=== PATIENT | female | born 1950 ===

== ENCOUNTER 2017-01-20 14:33 | Inpatient (IN) | payer OTHER ==
[2017-01-20] MEDS ORDERED: Sodium Chloride 0.9% 1,000 ML IV STA (14:57)
[2017-01-20] MEDS ORDERED: Iohexol 240 (50 ml) PO ONE (14:57)
--- NOTE | 2017-01-20 15:02 | ED PDOC ---
HPI: Abdomen Time Seen by Provider: 01/20/17 14:50 Chief Complaint (Nursing): Abdominal Pain Chief Complaint (Provider): Abd pain History Per: Patient History/Exam Limitations: no limitations Onset/Duration Of Symptoms: Days (yesterday) Additional Complaint(s): Pt. with abd pain upper abd since yesterday. Nausea, vomit nonbloody as well No back pain, chest pain, dyspnea, weakness, headaches. No dysuira. No fever. No cough. No new food or drinks. No travel. Past Medical History Reviewed: Nursing Documentation, Vital Signs Vital Signs: Last Vital Signs Temp 98.0 F 01/20/17 14:36 Pulse 88 01/20/17 14:36 Resp 20 01/20/17 14:36 BP 168/90 H 01/20/17 14:36 Pulse Ox 98 01/20/17 19:10 - Medical History Other PMH: cervical cancer hx - Surgical History Surgical History: Denies: Back Surgery, CABG - Family History Family History: States: Unknown Family Hx - Living Arrangements Living Arrangements: With Family - Social History Current smoker - smoking cessation education provided: No Alcohol: None Drugs: Denies - Allergies Allergies/Adverse Reactions: Allergies Allergy/AdvReac Type Severity Reaction Status Date / Time No Known Allergies Allergy Verified 01/20/17 14:38 Review of Systems ROS Statement: Except As Marked, All Systems Reviewed And Found Negative Gastrointestinal: Positive for: Nausea, Vomiting, Abdominal Pain Physical Exam - Reviewed Nursing Documentation Reviewed: Yes Vital Signs Reviewed: Yes - Physical Exam Appears: Positive for: Non-toxic, No Acute Distress Head Exam: Positive for: ATRAUMATIC, NORMAL INSPECTION, NORMOCEPHALIC Skin: Positive for: Normal Color, Warm, DRY Eye Exam: Positive for: EOMI, Normal appearance, PERRL ENT: Positive for: Normal ENT Inspection Neck: Positive for: Normal, Painless ROM Cardiovascular/Chest: Positive for: Regular Rate, Rhythm Respiratory: Positive for: CNT, Normal Breath Sounds Gastrointestinal/Abdominal: Positive for: Bowel Sounds, Soft, Tenderness ( diffuse with hernia/bulging mid abd; no echymosis or erythema) Back: Positive for: Normal Inspection. Negative for: L CVA Tenderness, R CVA Tenderness Extremity: Positive for: Normal ROM. Negative for: Tenderness, Pedal Edema Neurologic/Psych: Positive for: Alert, Oriented - Laboratory Results Result Diagrams: 01/20/17 15:30 01/20/17 14:59 Interpretation Of Abn Labs: 12.2 wbc, t bili and ast and alt mild elevation; 3 k - ECG ECG: Positive for: Interpreted By Me, Viewed By Me ECG Rhythm: Positive for: Normal QRS, Normal ST Segment, Sinus Rhythm O2 Sat by Pulse Oximetry: 98 Pulse Ox Interpretation: Normal - Radiology X-Ray: Interpreted by Me, Viewed By Me X-Ray Interpretation: No Acute Disease - CT Scan/US ct and US Other Rad Studies (CT/US): Read By Radiologist Other Rad Interpretation: small bowel obstruction; hernia - Progress ED Course And Treament: 1926: Stable. AAOx3. Spoke with Dr. Price. Will admit. Spoke with Dr. Morales. Will consult. Disposition - Clinical Impression Clinical Impression: Small bowel obstruction, Hypokalemia, Hernia - Patient ED Disposition Is Patient to be Admitted: Yes Counseled Patient/Family Regarding: Studies Performed, Diagnosis - Disposition Disposition Time: 19:27 Condition: FAIR - Pt Status Changed To: Hospital Disposition Of: Inpatient - Admit Certification Admit to Inpatient:: After my assessment, the patient will require hospitalization for at least two midnights. This is because of the severity of symptoms shown, intensity of services needed, and/or the medical risk in this patient being treated as an outpatient. - POA Present On Arrival: None
[2017-01-20] MEDS ORDERED: Iohexol 240 (50 ml) ONE (15:26)
[2017-01-20 15:43] LABS: BASO % 0.2 % (0.0-2.0); EOS % 0.1 % (0.0-4.0); HEMATOCRIT 42.8 % (34.0-47.0); LYMPH % 8.2 % (20.0-40.0); MEAN CELL VOLUME 88.2 fl (81.0-99.0); MEAN CORPUSCULAR HEMOGLOBIN 29.9 pg (27.0-31.0); MEAN CORPUSCULAR HGB CONC 33.9 g/dL (33.0-37.0); MEAN PLATELET VOLUME 9.2 fl (7.2-11.7); MONO # 0.5 K/uL (0.0-0.8); MONO % 3.8 % (0.0-10.0); NEUT # 10.7 K/uL (1.8-7.0); NEUT % 87.7 % (50.0-75.0); PLATELET COUNT 176 K/uL (130-400); RED CELL DISTRIBUTION WIDTH 13.1 % (11.5-14.5); WHITE BLOOD COUNT 12.2 K/uL (4.8-10.8)
[2017-01-20 15:57] LABS: ALB/GLOB RATIO 1.2 (1.0-2.1); ALKALINE PHOSPHATASE 126 U/L (38-126); ALT/SGPT 58 U/L (9-52); AST/SGOT 42 U/L (14-36); BILIRUBIN,TOTAL 2.2 mg/dl (0.2-1.3); BLOOD UREA NITROGEN 17 mg/dl (7-17); CALCIUM 10.1 mg/dL (8.4-10.2); CARBON DIOXIDE 26 mmol/L (22-30); CHLORIDE 101 mmol/L (98-107); GFR AFRICAN-AMERICAN > 60; GLUCOSE,RANDOM 140 mg/dL (65-105); LIPASE 36 U/L (23-300); SODIUM 141 mmol/l (132-148); TOTAL PROTEIN 9.1 G/DL (6.3-8.2)
--- NOTE | 2017-01-20 16:16 | RAD ---
HISTORY: dyspnea COMPARISON: Chest x-ray performed 12/16/11 TECHNIQUE: Chest, one view. FINDINGS: Examination limited by habitus. LUNGS: No focal consolidation. Please note that chest x-ray has limited sensitivity for the detection of pulmonary masses. PLEURA: No significant pleural effusion identified. No definite pneumothorax . CARDIOVASCULAR: Heart size appears within normal limits. Atherosclerotic calcifications of the aortic knob. OSSEOUS STRUCTURES: Osseous demineralization. Degenerative changes. VISUALIZED UPPER ABDOMEN: Right upper quadrant surgical clips. OTHER FINDINGS: None. IMPRESSION: No focal consolidation, significant pleural effusion, or definite pneumothorax identified.
[2017-01-20 16:23] LABS: VENOUS BLOOD GAS BASE EXCESS 5.8 mmol/L (0.0-2.0); VENOUS BLOOD GAS PCO2 33 mmHg (40-60); VENOUS BLOOD PH 7.54 (7.32-7.43)
[2017-01-20 17:11] LABS: NEUTROPHIL 86 % (42-75); TOTAL CELLS COUNTED 100
[2017-01-20] MEDS ORDERED: Sodium Chloride 0.9% 50 ML IV ONE (17:11)
[2017-01-20] MEDS ORDERED: Iohexol 300 100 ML IJ ONE (17:11)
--- NOTE | 2017-01-20 18:13 | CT ---
PROCEDURE: CT Abdomen and Pelvis with oral and IV contrast. HISTORY: abd pain COMPARISON: None available TECHNIQUE: Contiguous axial images of the abdomen and pelvis. Oral and IV contrast was administered. Coronal and Sagittal reformats generated and reviewed. Contrast dose: 90 mL Omnipaque 300 Radiation dose: Total exam DLP = 618.46 mGy-cm. This CT exam was performed using one or more of the following dose reduction techniques: Automated exposure control, adjustment of the mA and/or kV according to patient size, and/or use of iterative reconstruction technique. FINDINGS: LOWER THORAX: No visible consolidation, pleural effusion, or pneumothorax. Gastroesophageal reflux. LIVER: Hypoattenuation of the liver compatible with hepatic steatosis. GALLBLADDER AND BILE DUCTS: Cholecystectomy. PANCREAS: Unremarkable. SPLEEN: Unremarkable. ADRENALS: Unremarkable. KIDNEYS AND URETERS: The kidneys enhance symmetrically. No hydronephrosis or obstructing renal calculus. 16 mm left renal low-density lesion, possibly cyst. BLADDER: Distended urinary bladder. REPRODUCTIVE: Uterus is absent, presumably due to hysterectomy. APPENDIX: The appendix is not identified. No secondary signs of acute appendicitis. BOWEL: The stomach is nondistended. At least 4 large anterior bowel containing abdominal wall hernias. Superior most hernia measures approximately 2.5 cm in transverse dimension and contains dilated fluid-filled small bowel loops. More inferiorly, there is a 2.1 cm bowel containing hernia, right anterior abdominal wall hernia measuring approximately 3.9 cm, and left anterior abdominal wall hernia measuring approximately 2.7 cm. Suspect small bowel obstruction due to prominent fluid-filled dilated loops of small bowel within the mid abdomen with more distally decompressed small bowel loops evident. Suspect transition point (series 3, image 89) near the mouth of the superior most hernia. PERITONEUM: No significant free fluid. No definite free air. LYMPH NODES: No bulky lymphadenopathy identified. VASCULATURE: No aortic aneurysm. BONES: Osseous demineralization. Degenerative changes. OTHER FINDINGS: None. IMPRESSION: At least 4 ventral wall bowel containing hernias. In the evidence which suggests small bowel obstruction with transition point suspected near the mouth of the superior most hernia. Hepatic steatosis. Cholecystectomy. 16 mm probable left renal cyst. Gastroesophageal reflux.
--- NOTE | 2017-01-20 18:25 | US ---
HISTORY: ruq and epigastric pain COMPARISON: CT abdomen and pelvis with contrast performed the same day. TECHNIQUE: Sonographic evaluation of the right upper quadrant of the abdomen. FINDINGS: LIVER: Measures 15.4 cm in length. Echogenic liver may be seen in setting of hepatic parenchymal disease or fatty infiltration. No focal hepatic mass identified. The main portal vein appears patent with normal directional flow. No intrahepatic bile duct dilatation. GALLBLADDER: Cholecystectomy. COMMON BILE DUCT: Measures 8 mm. No stones. No dilatation. PANCREAS: Not well-visualized RIGHT KIDNEY: Measures 11.0 x 3.9 x 5.9 cm. No obstructing calculus or hydronephrosis identified. AORTA: Limited visualization appears grossly unremarkable. IVC: Limited visualization appears grossly unremarkable. OTHER FINDINGS: None . IMPRESSION: Echogenic liver may be seen in setting of hepatic parenchymal disease or fatty infiltration. Cholecystectomy.
[2017-01-20] MEDS ORDERED: Potassium Chloride 20 mEq ER Tab PO STA (19:28)
[2017-01-20] MEDS ORDERED: Potassium Chl 20 mEq in NS 1,000 ML IV ONE (19:30)
--- NOTE | 2017-01-20 20:19 | CP.PCM.HP ---
History of Present Illness - History of Present Illness History of Present Illness: Chief Complaint: stomach pain HPI: 66 year old female with PMH hx cervical ca s/p chemo/radiation, hx hernias , s/p hysterectomy, appendectomy, cholecystectomy, presents with a two day history of sharp, stabbing, severe generalized abdominal pain, cramping, waxing and waning in nature, associated with bilious emesis and nausea. Patient is accompanied by daughter who is providing most of the history. Pain controlled, NGT +600cc bilious in one hour, to LIS. Surgery consulted in ER, Dr. Morales, patient seen and evaluated by resident. Plan for OR tomorrow. NPO after midnight. Patient to remain on maintenance fluids, pain control. Vitals are stable, no longer in acute distress. ROS: Per HPI, all other systems reviewed negative by me PMSH: hx cervical ca s/p chemo/radiation, s/p hysterectomy, appendectomy, cholecystectomy FH: denies SH: denies tobacco, etoh, ivdu ALLERGIES: NKDA MEDICATIONS: reviewed and as below Surrogate Decision Maker: in chart Temp Pulse Resp BP Pulse Ox 98.5 F 65 18 148/66 97 01/20/17 21:23 01/20/17 21:23 01/20/17 21:23 01/20/17 21:23 01/20/17 21:22 GENERAL APPEARANCE: Well developed, well nourished, alert and cooperative HEENT: normocephalic, atraumatic PERRL, EOMI. Vision is grossly intact. NECK: Neck supple, non-tender without lymphadenopathy, masses or thyromegaly. CARDIAC: Normal S1 and S2. No S3, S4 or murmurs. Rhythm is regular. LUNGS: Clear to auscultation and percussion without rales, rhonchi, wheezing or diminished breath sounds. ABDOMEN: No bowel sounds appreciated. Soft, nondistended, +tender. + guarding without rebound. No masses. BACK: Examination of the spine reveals no spinal deformity, symmetry of spinal muscles, EXTREMITIES: No significant deformity or joint abnormality. No edema. NEUROLOGICAL: Strength and sensation symmetric and intact throughout. Reflexes 2 + throughout. SKIN: Skin normal color, texture and turgor with no lesions or eruptions. PSYCHIATRIC: The patient was oriented to person, place, and time. Normal affect. LABS: 01/20/17 15:30 05/23/17 14:59 01/20/17 01/20/17 01/20/17 15:30 14:59 14:57 WBC 12.2 H RBC 4.85 Hgb 14.5 Hct 42.8 MCV 88.2 MCH 29.9 MCHC 33.9 RDW 13.1 Plt Count 176 MPV 9.2 Neut % (Auto) 87.7 H Lymph % (Auto) 8.2 L [place] % (Auto) 3.8 Eos % (Auto) 0.1 Baso % (Auto) 0.2 Neut # 10.7 H Lymph # 1.0 [place] # 0.5 Eos # 0.0 Baso # 0.0 Neutrophils % (Manual) 86 H Band Neutrophils % 1 Lymphocytes % (Manual) 12 L Monocytes % (Manual) 1 Platelet Estimate Normal pO2 40 VBG pH 7.54 H VBG pCO2 33 L VBG HCO3 29.0 VBG Total CO2 29.2 H VBG O2 Sat (Calc) 84.4 H VBG Base Excess 5.8 H VBG Potassium 3.0 L Sodium 141 138.0 Chloride 101 106.0 Glucose 114 H Lactate 1.5 FiO2 21.0 Potassium 3.0 L Carbon Dioxide 26 Anion Gap 17 BUN 17 Creatinine 0.6 L Est GFR ( Amer) > 60 Est GFR (Non-Af Amer) > 60 Random Glucose 140 H Calcium 10.1 Total Bilirubin 2.2 H AST 42 H ALT 58 H Alkaline Phosphatase 126 Total Protein 9.1 H Albumin 4.9 Globulin 4.2 H Albumin/Globulin Ratio 1.2 Lipase 36 Venous Blood Potassium 3.0 L IMAGING STUDIES Abd US Echogenic liver may be seen in setting of hepatic parenchymal disease or fatty infiltration. Cholecystectomy. CT Abd: at least 4 ventral wall bowel containing hernias. In the evidence which suggests small bowel obstruction with transition point suspected near the mouth of the superior most hernia. Hepatic steatosis. Cholecystectomy. 16 mm probable L renal cyst. GERD. CXR no active disease EKG Normal sinus. T wave flattening nonspecific changes. Rate 71. ASSESSMENT AND PLAN 66 year old female with PMH hx cervical ca s/p chemo/radiation, hx hernias, s/p hysterectomy, appendectomy, cholecystectomy, presents with a two day history of sharp, stabbing, severe generalized abdominal pain, cramping, waxing and waning in nature, associated with bilious emesis and nausea. Patient is accompanied by daughter who is providing most of the history. CT Abd: at least 4 ventral wall bowel containing hernias. In the evidence which suggests small bowel obstruction with transition point suspected near the mouth of the superior most hernia. Hepatic steatosis. Cholecystectomy. 16 mm probable L renal cyst. GERD. Pain controlled, NGT +600cc bilious in one hour, to LIS. Surgery consulted in ER for SBO, Dr. Morales, patient seen and evaluated by resident. Plan for OR tomorrow. NPO after midnight. Patient to remain on maintenance fluids, pain control. Vitals are stable, no longer in acute distress. Surgical risk stratification: METS >4. Patient low risk for low risk procedure. Small Bowel Obstruction CT Abd: at least 4 ventral wall bowel containing hernias. In the evidence which suggests small bowel obstruction with transition point suspected near the mouth of the superior most hernia. Hepatic steatosis. Cholecystectomy. 16 mm probable L renal cyst. GERD. +NGT placed with 600cc out in first hour, LIS; I/O Pain control with morphine and toradol NPO Zofran for nausea Maintenance fluids Surgery consult, plan for OR tomorrow Hypokalemia repleted in ER monitor electroytes DVT prophylaxis SCDs OR tomorrow Present on Admission - Present on Admission Any Indicators Present on Admission: No Past Patient History - Infectious Disease Hx of Infectious Diseases: None - Past Social History Alcohol: None Drugs: Denies - PULMONARY Other/Comment: lt. lung effusion - GENITOURINARY/GYNECOLOGICAL Hx Cervical Cancer: Yes - PSYCHIATRIC Hx Substance Use: No - SURGICAL HISTORY Hx Coronary Artery Bypass Graft: No Meds Allergies/Adverse Reactions: Allergies Allergy/AdvReac Type Severity Reaction Status Date / Time No Known Allergies Allergy Verified 01/20/17 14:38 Results - Vital Signs Recent Vital Signs: Last Vital Signs Temp 98.2 F 01/20/17 19:31 Pulse 72 01/20/17 20:07 Resp 18 01/20/17 20:07 BP 169/86 H 01/20/17 20:07 Pulse Ox 94 L 01/20/17 20:07 - Labs Result Diagrams: 01/20/17 15:30 01/20/17 14:59
[2017-01-20] MEDS ORDERED: Potassium CL 10mEq/100ml 100 ML IVPB SCH (21:00)
--- NOTE | 2017-01-20 22:10 | CP.PCM.CON ---
History of Present Illness - History of Present Illness History of Present Illness: GENERAL SURGERY CONSULT NOTE FOR DR. NORTH 66yo F with PMHx of cervical cancer s/p chemo and radiation, hysterectomy, ventral hernias presents to the ED with abdominal pain and vomiting. The pain began yesterday around 2PM. The pain was diffuse but more so where the superior ventral hernia is. She vomited more than 10 times, non bloody. Her last BM was yesterday AM and it was soft. She can't remember the last time she passed flatus but states it might be last week. The patient first noticed the hernias about a year ago when she had pain in the area. She saw a doctor at [facility] who per the patient stated that they didn't recommend surgery due to her age. Patient had tried to reduce the hernias in the past but was unsuccessful. In the ED, CT was done which showed SBO likely secondary to ventral hernia. An NG tube was placed with 650cc initial output. Of note, patient states that she had latent TB. She took an unknown medication for a couple days but had side effects so her doctor told her she didn't have to take it anymore. She had been seen at the lung center in [place]. Patient has a follow up appointment with a band edger in January. PMHx: cervical cancer s/p surgery, chemo and radiation 5 years ago; ventral hernias; latent TB Surgeries: cholecystectomy in [facility], hysterectomy, appendectomy in [facility] Allergies: none Social history: denies etoh, tobacco use, illicit drug use Review of Systems - Review of Systems All systems: reviewed and no additional remarkable complaints except (as per HPI ) Past Patient History - Infectious Disease Hx of Infectious Diseases: None - Past Social History Alcohol: None Drugs: Denies - CARDIAC Hx Cardiac Disorders: No - PULMONARY Other/Comment: lt. lung effusion - NEUROLOGICAL Hx Neurological Disorder: No - HEENT Hx HEENT Problems: No - RENAL Hx Chronic Kidney Disease: No - ENDOCRINE/METABOLIC Hx Endocrine Disorders: No - HEMATOLOGICAL/ONCOLOGICAL Hx Blood Disorders: Yes (Cervical cancer) - INTEGUMENTARY Hx Dermatological Problems: No - MUSCULOSKELETAL/RHEUMATOLOGICAL Hx Musculoskeletal Disorders: No - GENITOURINARY/GYNECOLOGICAL Hx Cervical Cancer: Yes - PSYCHIATRIC Hx Substance Use: No - SURGICAL HISTORY Hx Coronary Artery Bypass Graft: No Meds Allergies/Adverse Reactions: Allergies Allergy/AdvReac Type Severity Reaction Status Date / Time No Known Allergies Allergy Verified 01/20/17 14:38 - Medications Medications: Current Medications Potassium Chloride/Dextrose/Sod Cl (Potassium Chl 20 Meq In D5-1/2ns) 1,000 mls @ 125 mls/hr IV .Q8H MICHELLE Stop: 01/21/17 20:38 Ketorolac Tromethamine (Toradol) 30 mg IVP Q6 PRN PRN Reason: Pain, moderate (4-7) Morphine Sulfate (Morphine) 4 mg IVP Q6 PRN PRN Reason: Pain, severe (8-10) Ondansetron HCl (Zofran Inj) 4 mg IVP Q6 PRN PRN Reason: Nausea/Vomiting Physical Exam - Constitutional Appears: Non-toxic, No Acute Distress - Head Exam Head Exam: ATRAUMATIC, NORMAL INSPECTION - Eye Exam Eye Exam: EOMI - Respiratory Exam Respiratory Exam: NORMAL BREATHING PATTERN. absent: Respiratory Distress - Cardiovascular Exam Cardiovascular Exam: +S1, +S2 - GI/Abdominal Exam GI & Abdominal Exam: Firm (over superior hernia), Hernia (multiple non reducible ventral hernias, superior hernia is firmer, tender), Soft, Tenderness (tender over multiple hernia sites). absent: Distended, Guarding, Rebound, Rigid Additional comments: Lower midline abdominal scar - Neurological Exam Neurological exam: Alert, CN II-XII Intact, Oriented x3 - Psychiatric Exam Psychiatric exam: Normal Affect, Normal Mood - Skin Skin Exam: Dry, Normal Color, Warm Results - Vital Signs Recent Vital Signs: Last Vital Signs Temp 98.5 F 01/20/17 21:23 Pulse 65 01/20/17 21:23 Resp 18 01/20/17 21:23 BP 148/66 01/20/17 21:23 Pulse Ox 97 01/20/17 21:22 - Labs Result Diagrams: 01/20/17 15:30 01/20/17 14:59 Assessment & Plan - Assessment and Plan (Free Text) Assessment: 66yo F with PMHx of cervical cancer s/p chemo and radiation, hysterectomy, ventral hernias presents with abdominal pain and vomiting and is found to have SBO secondary to ventral hernia - Afebrile, VSS - WBC 12.2 - VBG lactate WNL - Hypokalemia 3.0 - replaced - CT: at least 4 ventral wall bowel containing hernias. Small bowel obstruction with transition point likely near mouth of superior most hernia. Superior hernia 2.5cm with dilated fluid filled loops; Inferiorly 2.1cm; Right abdominal wall hernia 3.9cm; Left abdominal wall hernia 2.7cm - NG tube in place on low continuous suction, 650cc output in initial hour in ED - NPO - IV fluids - Morphine and Zofran PRN - OR tomorrow AM for Exploratory laparotomy, repair of ventral hernia, possible bowel resection - Procedure explained to patient and family in detail, all questions were answered, written consent obtained - Discussed plan with Dr. Andrew Rodriguez PGY-2
[2017-01-20] MEDS: Potassium Ch 20mEq in D5-1/2NS 1,000 ML IV SCH ×2 (22:27→23:14)
[2017-01-21] MEDS: Potassium Ch 20mEq in D5-1/2NS 1,000 ML IV SCH ×3 (05:05→23:07)
[2017-01-21 07:44] LABS: HEMATOCRIT 38.6 % (34.0-47.0); MEAN CELL VOLUME 89.9 fl (81.0-99.0); MEAN CORPUSCULAR HEMOGLOBIN 30.1 pg (27.0-31.0); MEAN CORPUSCULAR HGB CONC 33.5 g/dL (33.0-37.0); RED CELL DISTRIBUTION WIDTH 13.2 % (11.5-14.5); WHITE BLOOD COUNT 7.7 K/uL (4.8-10.8)
[2017-01-21 08:03] LABS: BLOOD UREA NITROGEN 12 mg/dl (7-17); CARBON DIOXIDE 26 mmol/L (22-30); CHLORIDE 107 mmol/L (98-107); GFR AFRICAN-AMERICAN > 60; GLUCOSE,RANDOM 129 mg/dL (65-105); POTASSIUM 4.2 MMOL/L (3.6-5.0); SODIUM 141 mmol/l (132-148)
[2017-01-21] MEDS ORDERED: Enoxaparin 40 mg Syringe SC SCH (09:00)
[2017-01-21 09:17] LABS: PARTIAL THROMBOPLASTIN TIME 24.2 SECONDS (23.3-32.5)
[2017-01-21] MEDS ORDERED: Propofol 10 mg/ml Inj (20 ML) ONE (09:48)
[2017-01-21] MEDS ORDERED: Rocuronium 10 mg/ml (5 ml) ONE ×2 (09:48→11:06)
[2017-01-21] MEDS ORDERED: Midazolam 2 MG/2 ML VIAL ONE (09:48)
[2017-01-21] MEDS ORDERED: Succinylcholine 200 mg/10 ml Inj IV ONE (09:48)
[2017-01-21] MEDS ORDERED: Bupivacaine 0.5% Inj(30mL) ONE (10:00)
[2017-01-21] MEDS ORDERED: Lidocaine 1% Inj (20ml) ONE (10:00)
[2017-01-21] MEDS ORDERED: Lactated Ringer's 1,000 ML IV ONE ×2 (10:12→11:00)
[2017-01-21] MEDS ORDERED: Morphine 1 mg/ml preservative-free Inj(Duramorph) ONE (10:30)
--- NOTE | 2017-01-21 11:29 | RAD ---
PROCEDURE: CHEST RADIOGRAPH, 1 VIEW HISTORY: ngt placement COMPARISON: FINDINGS: LUNGS: In situ NGT, tip of which overlies left upper quadrant of the abdomen. No focal consolidation. PLEURA: No pneumothorax or pleural fluid seen. CARDIOVASCULAR: Normal. OSSEOUS STRUCTURES: No significant abnormalities. VISUALIZED UPPER ABDOMEN: Metallic clips right upper quadrant of the abdomen consistent with prior cholecystectomy. OTHER FINDINGS: None. IMPRESSION: In situ NGT, tip of which overlies left upper quadrant of the abdomen. No focal consolidation.
[2017-01-21] MEDS ORDERED: Neostigmine Methylsulfate 3mg/3ml Syringe IV ONE (11:30)
[2017-01-21] MEDS ORDERED: Neostigmine Methylsulfate 2 MG/2 ML ML IV ONE (11:30)
--- NOTE | 2017-01-21 12:10 | PCM.SURG1 ---
Surgeon's Initial Post Op Note - Surgeon's Notes Surgeon: Dr. Morales Cap Parts Cutter: Dr. Lundy, Dr. Hays, Dr. Harper Type of Anesthesia: General Endo Anesthesia Administered By: Airam Pre-Operative Diagnosis: Small Bowel Obstruction, Incarcerated Ventral hernia Operative Findings: see operative report Post-Operative Diagnosis: same Operation Performed: Exploratory Laparotomy. Repair of Incarcerated Ventral Hernia, with Mesh Specimen/Specimens Removed: none Estimated Blood Loss: EBL {In ML}: 10 Blood Products Given: N/A Drains Used: No Drains Post-Op Condition: Good Date of Surgery/Procedure: 01/21/17 Time of Surgery/Procedure: 12:10
[2017-01-21] MEDS: HYDROmorphone 0.5 mg/0.5 ml ISec IVP PRN ×5 (12:40→23:06)
--- NOTE | 2017-01-21 19:57 | CP.PCM.PN ---
Subjective - Date & Time of Evaluation Date of Evaluation: 01/21/17 Time of Evaluation: 17:10 - Subjective Subjective: Pt seen and examined. S/P repair of incarcerated hernia. Pain managed with Dilaudid 0.5mg IV q 4hrs prn. Objective - Vital Signs/Intake and Output Vital Signs (last 24 hours): Temp Pulse Resp BP Pulse Ox 98.2 F 87 20 134/63 96 01/21/17 18:44 01/21/17 18:44 01/21/17 18:44 01/21/17 18:44 01/21/17 18:44 Intake and Output: 01/21/17 01/22/17 18:59 06:59 Intake Total 1600 Output Total 575 Balance 1025 - Medications Medications: Current Medications Hydralazine HCl (Apresoline) 10 mg IV Q15M PRN PRN Reason: Systolic Blood Pressure Last Admin: 01/21/17 13:00 Dose: 10 mg Hydromorphone HCl (Dilaudid) 0.5 mg IVP Q3H PRN PRN Reason: Pain, moderate (4-7) Last Admin: 01/21/17 19:39 Dose: 0.5 mg Potassium Chloride/Dextrose/Sod Cl (Potassium Chl 20 Meq In D5-1/2ns) 1,000 mls @ 125 mls/hr IV .Q8H MICHELLE Last Admin: 01/21/17 06:13 Dose: 125 mls/hr Ondansetron HCl (Zofran Inj) 4 mg IVP Q4H PRN PRN Reason: Nausea/Vomiting - Labs Labs: 01/21/17 06:35 01/21/17 06:35 PT 10.4 SECONDS (9.6-11.2) 01/21/17 06:35 INR 1.00 (0.92-1.08) 01/21/17 06:35 APTT 24.2 SECONDS (23.3-32.5) 01/21/17 06:35 - Constitutional Appears: No Acute Distress - Head Exam Head Exam: ATRAUMATIC - Eye Exam Eye Exam: absent: Scleral icterus - ENT Exam ENT Exam: Mucous Membranes Moist - Neck Exam Neck Exam: absent: Meningismus - Respiratory Exam Respiratory Exam: absent: Rhonchi, Wheezes, Respiratory Distress - Cardiovascular Exam Cardiovascular Exam: REGULAR RHYTHM, +S1, +S2 - GI/Abdominal Exam GI & Abdominal Exam: Soft, Tenderness (tenderness on site of surgery) - Rectal Exam Rectal Exam: Deferred - Neurological Exam Neurological Exam: Alert, Oriented x3 - Psychiatric Exam Psychiatric exam: Normal Affect - Skin Skin Exam: Dry, Intact Assessment and Plan (1) Status post repair of ventral hernia Status: Acute (2) Hypokalemia Status: Acute - Assessment and Plan (Free Text) Assessment: 66 yo female with history of cervical cancer, post chemo/radiation, hernia, hysterectomy, appendectomy and cholecystectomy admitted because of intestinal obstruction (presented with abdominal pain, nausea and vomiting with [address] ventral [address]nia on CT scan) 1. SBO, S/P Ventral Hernia Repair incarcerated ventral hernia repaired earlier today continue IV hydration pain management with Dilaudid 0.5mg IV q 4hrs prn 2. Hypokalemia resolved 3. DVT prophylaxis venodyne boots while in bed
[2017-01-21 20:30] VITALS: BMI 29.6
[2017-01-22] MEDS: HYDROmorphone 0.5 mg/0.5 ml ISec IVP PRN ×4 (07:47→21:45)
--- NOTE | 2017-01-22 10:46 | CP.PCM.PN ---
Subjective - Date & Time of Evaluation Date of Evaluation: 01/22/17 Time of Evaluation: 10:44 - Subjective Subjective: General Surgery Progress Note for Dr. Morales / Dr. Lundy This 66F was seen and examined this AM at bedside. She reports no acute events overnight. Patient is complaining a continued abdominal pain. She is tolerating clears. She denies flatus, or bowel movements. She deneies nausea or vomiting. Her dressings are are intact with strikethrough serosanguinous drainage. Objective - Vital Signs/Intake and Output Vital Signs (last 24 hours): Temp Pulse Resp BP Pulse Ox 99.7 F H 102 H 20 144/63 96 01/22/17 07:45 01/22/17 07:45 01/22/17 07:45 01/22/17 07:45 01/22/17 07:45 - Medications Medications: Current Medications Hydralazine HCl (Apresoline) 10 mg IV Q15M PRN PRN Reason: Systolic Blood Pressure Last Admin: 01/21/17 13:00 Dose: 10 mg Hydromorphone HCl (Dilaudid) 0.5 mg IVP Q3H PRN PRN Reason: Pain, moderate (4-7) Last Admin: 01/22/17 07:47 Dose: 0.5 mg Potassium Chloride/Dextrose/Sod Cl (Potassium Chl 20 Meq In D5-1/2ns) 1,000 mls @ 125 mls/hr IV .Q8H MICHELLE Last Admin: 01/21/17 23:07 Dose: 125 mls/hr Ondansetron HCl (Zofran Inj) 4 mg IVP Q4H PRN PRN Reason: Nausea/Vomiting - Labs Labs: 01/21/17 06:35 01/21/17 06:35 PT 10.4 SECONDS (9.6-11.2) 01/21/17 06:35 INR 1.00 (0.92-1.08) 01/21/17 06:35 APTT 24.2 SECONDS (23.3-32.5) 01/21/17 06:35 - Constitutional Appears: Non-toxic, No Acute Distress - Head Exam Head Exam: ATRAUMATIC, NORMOCEPHALIC - Eye Exam Eye Exam: EOMI, Normal appearance - ENT Exam ENT Exam: Mucous Membranes Moist - Respiratory Exam Respiratory Exam: NORMAL BREATHING PATTERN - Cardiovascular Exam Cardiovascular Exam: REGULAR RHYTHM - GI/Abdominal Exam GI & Abdominal Exam: Soft, Tenderness Additional comments: Dressing intact with serosanguinous drainage - Extremities Exam Extremities Exam: Normal Inspection - Neurological Exam Neurological Exam: Alert, Awake - Psychiatric Exam Psychiatric exam: Normal Affect, Normal Mood - Skin Skin Exam: Dry, Intact Assessment and Plan - Assessment and Plan (Free Text) Assessment: This is a 66F who is POD#1 s/p exlap with reduction of obstructing incarcerated ventral hernia with mesh repair Continue clear liquid diet Continue pain control IVF OOB Continue medical managment per priamry team Heparin Subq for DVT prophalaxis. D/W Dr Nikkie Harper PGY-4
[2017-01-22 11:11] LABS: BASO % 0.2 % (0.0-2.0); EOS % 0.2 % (0.0-4.0); HEMATOCRIT 37.3 % (34.0-47.0); LYMPH # 1.6 K/uL (1.0-4.3); LYMPH % 17.5 % (20.0-40.0); MEAN CELL VOLUME 89.7 fl (81.0-99.0); MEAN CORPUSCULAR HEMOGLOBIN 30.3 pg (27.0-31.0); MEAN CORPUSCULAR HGB CONC 33.7 g/dL (33.0-37.0); MEAN PLATELET VOLUME 9.2 fl (7.2-11.7); MONO # 0.9 K/uL (0.0-0.8); MONO % 9.5 % (0.0-10.0); NEUT # 6.6 K/uL (1.8-7.0); NEUT % 72.6 % (50.0-75.0); RED CELL DISTRIBUTION WIDTH 13.4 % (11.5-14.5); WHITE BLOOD COUNT 9.1 K/uL (4.8-10.8)
[2017-01-22 11:20] LABS: ALB/GLOB RATIO 1.1 (1.0-2.1); ALKALINE PHOSPHATASE 78 U/L (38-126); ALT/SGPT 45 U/L (9-52); AST/SGOT 33 U/L (14-36); BILIRUBIN,TOTAL 2.1 mg/dl (0.2-1.3); BLOOD UREA NITROGEN 9 mg/dl (7-17); CALCIUM 8.9 mg/dL (8.4-10.2); CARBON DIOXIDE 26 mmol/L (22-30); CHLORIDE 100 mmol/L (98-107); GFR AFRICAN-AMERICAN > 60; GLUCOSE,RANDOM 121 mg/dL (65-105); POTASSIUM 4.3 MMOL/L (3.6-5.0); SODIUM 133 mmol/l (132-148); TOTAL PROTEIN 6.9 G/DL (6.3-8.2)
--- NOTE | 2017-01-22 17:33 | CP.PCM.PN ---
Subjective - Date & Time of Evaluation Date of Evaluation: 01/22/17 Time of Evaluation: 11:00 - Subjective Subjective: Pt seen and examined. Still complained of abdominal pain once effect of Dilaudid lapsed. Objective - Vital Signs/Intake and Output Vital Signs (last 24 hours): Temp Pulse Resp BP Pulse Ox 99.6 F 84 20 153/71 H 92 L 01/22/17 16:01 01/22/17 16:01 01/22/17 16:01 01/22/17 16:01 01/22/17 16:01 - Medications Medications: Current Medications Heparin Sodium (Porcine) (Heparin) 5,000 units SC Q12 MICHELLE PRN Reason: Protocol Hydralazine HCl (Apresoline) 10 mg IV Q15M PRN PRN Reason: Systolic Blood Pressure Last Admin: 01/21/17 13:00 Dose: 10 mg Hydromorphone HCl (Dilaudid) 0.5 mg IVP Q3H PRN PRN Reason: Pain, moderate (4-7) Last Admin: 01/22/17 10:55 Dose: 0.5 mg Ondansetron HCl (Zofran Inj) 4 mg IVP Q4H PRN PRN Reason: Nausea/Vomiting Last Admin: 01/22/17 16:28 Dose: 4 mg - Labs Labs: 01/22/17 10:50 01/22/17 10:50 PT 10.4 SECONDS (9.6-11.2) 01/21/17 06:35 INR 1.00 (0.92-1.08) 01/21/17 06:35 APTT 24.2 SECONDS (23.3-32.5) 01/21/17 06:35 - Constitutional Appears: No Acute Distress - Head Exam Head Exam: ATRAUMATIC - Eye Exam Eye Exam: absent: Scleral icterus - ENT Exam ENT Exam: Mucous Membranes Moist - Neck Exam Neck Exam: absent: Meningismus - Respiratory Exam Respiratory Exam: absent: Rhonchi, Wheezes, Respiratory Distress - Cardiovascular Exam Cardiovascular Exam: REGULAR RHYTHM, +S1, +S2 - GI/Abdominal Exam GI & Abdominal Exam: Soft, Tenderness (tenderness on site of surgery on palpation) - Rectal Exam Rectal Exam: Deferred - Neurological Exam Neurological Exam: Alert, Oriented x3 - Psychiatric Exam Psychiatric exam: Normal Affect - Skin Skin Exam: Dry, Intact Assessment and Plan (1) Status post repair of ventral hernia Status: Acute (2) Hypokalemia Status: Resolved - Assessment and Plan (Free Text) Assessment: 66 yo female with history of cervical cancer, post chemo/radiation, hernia, hysterectomy, appendectomy and cholecystectomy admitted because of intestinal obstruction (presented with abdominal pain, nausea and vomiting with 4 ventral [address] hernia on CT scan) 1. SBO, S/P Ventral Hernia Repair incarcerated ventral hernia repair POD # 1 continue pain management with Dilaudid 0.5mg IV q 4hrs prn 2. Hypokalemia resolved 3. DVT prophylaxis Heparin 5000 units SC q 12hrs
[2017-01-22] MEDS: Potassium Ch 20mEq in D5-1/2NS 1,000 ML IV SCH (17:50)
[2017-01-22] MEDS: Sodium Chloride 0.9% 1,000 ML IV SCH (20:56)
[2017-01-23] MEDS: Sodium Chloride 0.9% 1,000 ML IV SCH (04:00)
[2017-01-23] MEDS: HYDROmorphone 0.5 mg/0.5 ml ISec IVP PRN ×3 (05:07→15:30)
--- NOTE | 2017-01-23 08:24 | CP.PCM.PN ---
Subjective - Date & Time of Evaluation Date of Evaluation: 01/23/17 Time of Evaluation: 08:22 - Subjective Subjective: General Surgery - Dr. Morales Pt S&E. CESAR. PT was OOB to chair yesterday but limited in transfer d/t abdominal pain from hernia repair, which is expected. She is passing flatus and tolerating liquid diet. No N/V, F/C, SOB/CP. Objective - Vital Signs/Intake and Output Vital Signs (last 24 hours): Temp Pulse Resp BP Pulse Ox 100.2 F H 87 20 142/72 96 01/23/17 05:12 01/23/17 05:12 01/23/17 05:12 01/23/17 05:12 01/23/17 05:12 - Medications Medications: Current Medications Heparin Sodium (Porcine) (Heparin) 5,000 units SC Q12 MICHELLE PRN Reason: Protocol Last Admin: 01/22/17 21:49 Dose: 5,000 units Hydralazine HCl (Apresoline) 10 mg IV Q15M PRN PRN Reason: Systolic Blood Pressure Last Admin: 01/21/17 13:00 Dose: 10 mg Hydromorphone HCl (Dilaudid) 0.5 mg IVP Q3H PRN PRN Reason: Pain, severe (8-10) Sodium Chloride (Sodium Chloride 0.9%) 1,000 mls @ 100 mls/hr IV .Q10H [facility] Stop: 01/23/17 17:49 Last Admin: 01/23/17 04:00 Dose: Not Given Ondansetron HCl (Zofran Inj) 4 mg IVP Q4H PRN PRN Reason: Nausea/Vomiting Last Admin: 01/22/17 16:28 Dose: 4 mg Oxycodone/Acetaminophen (Percocet 5/325 Mg Tab) 2 tab PO Q4 PRN PRN Reason: Pain, moderate (4-7) Stop: 01/26/17 08:21 - Labs Labs: 01/22/17 10:50 01/22/17 10:50 PT 10.4 SECONDS (9.6-11.2) 01/21/17 06:35 INR 1.00 (0.92-1.08) 01/21/17 06:35 APTT 24.2 SECONDS (23.3-32.5) 01/21/17 06:35 - Constitutional Appears: No Acute Distress - Head Exam Head Exam: ATRAUMATIC, NORMAL INSPECTION, NORMOCEPHALIC - Eye Exam Eye Exam: Normal appearance - Respiratory Exam Respiratory Exam: NORMAL BREATHING PATTERN. absent: Respiratory Distress - Cardiovascular Exam Cardiovascular Exam: REGULAR RHYTHM - GI/Abdominal Exam GI & Abdominal Exam: Soft, Tenderness (appropriately tender around surgical site ). absent: Distended, Guarding Additional comments: dressing removed with serosanguinous drainage on sponge, no drainage from incision, staple line CDI - Neurological Exam Neurological Exam: Alert, Oriented x3 - Psychiatric Exam Psychiatric exam: Normal Affect, Normal Mood - Skin Skin Exam: Dry, Intact Assessment and Plan - Assessment and Plan (Free Text) Assessment: 66F s/p repair of incarcerated ventral hernias, POD #2 -Regular diet -Pain control -Abdominal binder -OOB and Ambulate -Clear for D/C once tolerating regular diet DW Dr. Andrew Hays PGY2
[2017-01-23] MEDS ORDERED: Enoxaparin 40 mg Syringe SC STA (09:58)
--- NOTE | 2017-01-23 12:11 | CP.PCM.PN ---
Subjective - Date & Time of Evaluation Date of Evaluation: 01/23/17 Time of Evaluation: 11:00 - Subjective Subjective: Low grade fever this morning 100.2F still with abdominal pain but better no BM + Flatus tolerated diet - ate oatmeal for breakfast no CP no SOB Objective - Vital Signs/Intake and Output Vital Signs (last 24 hours): Temp Pulse Resp BP Pulse Ox 98.1 F 83 20 131/73 92 L 01/23/17 08:23 01/23/17 08:23 01/23/17 08:23 01/23/17 08:23 01/23/17 08:23 - Medications Medications: Current Medications Docusate Sodium (Colace) 100 mg PO BID [facility] TO [facility] Last Admin: 01/23/17 10:02 Dose: 100 mg Hydralazine HCl (Apresoline) 10 mg IV Q15M PRN PRN Reason: Systolic Blood Pressure Last Admin: 01/21/17 13:00 Dose: 10 mg Hydromorphone HCl (Dilaudid) 0.5 mg IVP Q3H PRN PRN Reason: Pain, severe (8-10) Last Admin: 01/23/17 09:24 Dose: 0.5 mg Sodium Chloride (Sodium Chloride 0.9%) 1,000 mls @ 100 mls/hr IV .Q10H MICHELLE Stop: 01/23/17 17:49 Last Admin: 01/23/17 04:00 Dose: Not Given Ondansetron HCl (Zofran Inj) 4 mg IVP Q4H PRN PRN Reason: Nausea/Vomiting Last Admin: 01/22/17 16:28 Dose: 4 mg Oxycodone/Acetaminophen (Percocet 5/325 Mg Tab) 2 tab PO Q4 PRN PRN Reason: Pain, moderate (4-7) Stop: 01/26/17 08:21 - Labs Labs: 01/22/17 10:50 01/22/17 10:50 PT 10.4 SECONDS (9.6-11.2) 01/21/17 06:35 INR 1.00 (0.92-1.08) 01/21/17 06:35 APTT 24.2 SECONDS (23.3-32.5) 01/21/17 06:35 - Constitutional Appears: No Acute Distress - Head Exam Head Exam: NORMAL INSPECTION, NORMOCEPHALIC - Eye Exam Eye Exam: EOMI, Normal appearance Pupil Exam: NORMAL ACCOMODATION - ENT Exam ENT Exam: Mucous Membranes Moist, Normal External Ear Exam - Neck Exam Neck Exam: Full ROM. absent: Meningismus - Respiratory Exam Respiratory Exam: NORMAL BREATHING PATTERN. absent: Rales, Wheezes, Respiratory Distress - Cardiovascular Exam Cardiovascular Exam: REGULAR RHYTHM, +S1, +S2 - GI/Abdominal Exam GI & Abdominal Exam: Soft, Tenderness, Hypoactive Bowel Sounds Additional comments: wound looks clean - Extremities Exam Extremities Exam: Full ROM, Normal Capillary Refill. absent: Calf Tenderness, Pedal Edema - Back Exam Back Exam: Full ROM. absent: CVA tenderness (L), CVA tenderness (R), paraspinal tenderness - Neurological Exam Neurological Exam: Alert, Awake, CN II-XII Intact, Oriented x3 Neuro motor strength exam: Left Upper Extremity: 5, Right Upper Extremity: 5, Left Lower Extremity: 5, Right Lower Extremity: 5 - Psychiatric Exam Psychiatric exam: Normal Affect, Normal Mood - Skin Skin Exam: Dry, Normal Color, Warm Assessment and Plan (1) Ventral hernia with bowel obstruction Status: Acute (2) Status post repair of ventral hernia Status: Acute (3) DVT prophylaxis Status: Acute (4) Hypokalemia Status: Resolved - Assessment and Plan (Free Text) Assessment: 66 yo female with history of cervical cancer, post chemo/radiation, hernia, hysterectomy, appendectomy and cholecystectomy admitted because of intestinal obstruction (presented with abdominal pain, nausea and vomiting with 4 ventral [address] hernia on CT scan) (1) Ventral hernia with bowel obstruction Status: Acute Pt presented with bowel obstruction IVF hydration Pain mgt Surgery consulted - Dr Morales- pt underwent Ventral Hernia Repair (2) Status post repair of ventral hernia Status: Acute as above (3) DVT prophylaxis Status: Acute Lovenox (4) Hypokalemia Status: Resolved replaced with KCl
--- NOTE | 2017-01-23 19:07 | CARD ---
APPROVED REPORT EKG Measurement Heart [id number] <Conclusion> Normal sinus rhythm Minimal voltage criteria for LVH, may be normal variant Borderline ECG
[2017-01-23] MEDS: Oxycodone/Acetaminophen 5/325 mg Tab PO PRN (20:42)
[2017-01-24 02:15] VITALS: PULSE 88
[2017-01-24 07:38] VITALS: BP 123/70; RESP 18; TEMP 98.4
--- NOTE | 2017-01-24 08:11 | CP.PCM.DIS ---
Provider - Provider Date of Admission: 01/20/17 19:24 Attending physician: Camelia Price DO Consults: Surgery : Dr Lundy Time Spent in preparation of Discharge (in minutes): 25 Diagnosis - Discharge Diagnosis (1) Ventral hernia with bowel obstruction Status: Acute (2) Status post repair of ventral hernia Status: Acute (3) DVT prophylaxis Status: Acute (4) Hypokalemia Status: Resolved Hospital Course - Lab Results Lab Results: Most Recent Lab Values WBC 9.1 K/uL (4.8-10.8) 01/22/17 10:50 RBC 4.16 Mil/uL (3.80-5.20) 01/22/17 10:50 Hgb 12.6 g/dL (12.0-16.0) 01/22/17 10:50 Hct 37.3 % (34.0-47.0) 01/22/17 10:50 MCV 89.7 fl (81.0-99.0) 01/22/17 10:50 MCH 30.3 pg (27.0-31.0) 01/22/17 10:50 MCHC 33.7 g/dL (33.0-37.0) 01/22/17 10:50 RDW 13.4 % (11.5-14.5) 01/22/17 10:50 Plt Count 171 K/uL (130-400) 01/22/17 10:50 MPV 9.2 fl (7.2-11.7) 01/22/17 10:50 Neut % (Auto) 72.6 % (50.0-75.0) 01/22/17 10:50 Lymph % (Auto) 17.5 % (20.0-40.0) L 01/22/17 10:50 [place] % (Auto) 9.5 % (0.0-10.0) 01/22/17 10:50 Eos % (Auto) 0.2 % (0.0-4.0) 01/22/17 10:50 Baso % (Auto) 0.2 % (0.0-2.0) 01/22/17 10:50 Neut # 6.6 K/uL (1.8-7.0) 01/22/17 10:50 Lymph # 1.6 K/uL (1.0-4.3) 01/22/17 10:50 [place] # 0.9 K/uL (0.0-0.8) H 01/22/17 10:50 Eos # 0.0 K/uL (0.0-0.7) 01/22/17 10:50 Baso # 0.0 K/uL (0.0-0.2) 01/22/17 10:50 Neutrophils % (Manual) 86 % (42-75) H 01/20/17 15:30 Band Neutrophils % 1 % (0-2) 01/20/17 15:30 Lymphocytes % (Manual) 12 % (20-50) L 01/20/17 15:30 Monocytes % (Manual) 1 % (0-10) 01/20/17 15:30 Platelet Estimate Normal (NORMAL) 01/20/17 15:30 PT 10.4 SECONDS (9.6-11.2) 01/21/17 06:35 INR 1.00 (0.92-1.08) 01/21/17 06:35 APTT 24.2 SECONDS (23.3-32.5) 01/21/17 06:35 pO2 40 mm/Hg (30-55) 01/20/17 14:57 VBG pH 7.54 (7.32-7.43) H 01/20/17 14:57 VBG pCO2 33 mmHg (40-60) L 01/20/17 14:57 VBG HCO3 29.0 mmol/L 01/20/17 14:57 VBG Total CO2 29.2 mmol/L (22-28) H 01/20/17 14:57 VBG O2 Sat (Calc) 84.4 % (40-65) H 01/20/17 14:57 VBG Base Excess 5.8 mmol/L (0.0-2.0) H 01/20/17 14:57 VBG Potassium 3.0 mmol/L (3.6-5.2) L 01/20/17 14:57 Sodium 138.0 mmol/L (132-148) 01/20/17 14:57 Chloride 106.0 mmol/L (98-107) 01/20/17 14:57 Glucose 114 mg/dL (65-105) H 01/20/17 14:57 Lactate 1.5 mmol/L (0.7-2.1) 01/20/17 14:57 FiO2 21.0 % 01/20/17 14:57 Sodium 133 mmol/l (132-148) 01/22/17 10:50 Potassium 4.3 MMOL/L (3.6-5.0) 01/22/17 10:50 Chloride 100 mmol/L (98-107) 01/22/17 10:50 Carbon Dioxide 26 mmol/L (22-30) 01/22/17 10:50 Anion Gap 12 (10-20) 01/22/17 10:50 BUN 9 mg/dl (7-17) 01/22/17 10:50 Creatinine 0.6 mg/dL (0.7-1.2) L 01/22/17 10:50 Est GFR ( Amer) > 60 01/22/17 10:50 Est GFR (Non-Af Amer) > 60 01/22/17 10:50 Random Glucose 121 mg/dL (65-105) H 01/22/17 10:50 Calcium 8.9 mg/dL (8.4-10.2) 01/22/17 10:50 Total Bilirubin 2.1 mg/dl (0.2-1.3) H 01/22/17 10:50 AST 33 U/L (14-36) 01/22/17 10:50 ALT 45 U/L (9-52) 01/22/17 10:50 Alkaline Phosphatase 78 U/L (38-126) 01/22/17 10:50 Total Protein 6.9 G/DL (6.3-8.2) 01/22/17 10:50 Albumin 3.6 g/dL (3.5-5.0) 01/22/17 10:50 Globulin 3.2 gm/dL (2.2-3.9) 01/22/17 10:50 Albumin/Globulin Ratio 1.1 (1.0-2.1) 01/22/17 10:50 Lipase 36 U/L (23-300) 01/20/17 14:59 Venous Blood Potassium 3.0 mmol/L (3.6-5.2) L 01/20/17 14:57 Blood Type O POSITIVE 01/21/17 11:28 Antibody Screen Negative 01/21/17 11:28 Crossmatch See Detail 01/21/17 11:28 BBK History Checked Patient has bt 01/21/17 11:28 - Hospital Course Hospital Course: 66 yo female with history of cervical cancer, post chemo/radiation, hernia, hysterectomy, appendectomy and cholecystectomy admitted because of intestinal obstruction (presented with abdominal pain, nausea and vomiting with 4 ventral [address] hernia on CT scan) (1) Ventral hernia with bowel obstruction Status: Acute Pt presented with bowel obstruction IVF hydration Pain mgt Surgery consulted - Dr Morales- pt underwent Ventral Hernia Repair tolerating PO diet + flatus and BM (2) Status post repair of ventral hernia Status: Acute as above (3) DVT prophylaxis Status: Acute Lovenox (4) Hypokalemia Status: Resolved replaced with KCl Discharge Exam - Head Exam Head Exam: NORMAL INSPECTION, NORMOCEPHALIC - Eye Exam Eye Exam: EOMI, Normal appearance, PERRL Pupil Exam: NORMAL ACCOMODATION - ENT Exam ENT Exam: Mucous Membranes Moist, Normal External Ear Exam - Neck Exam Neck exam: Full Rom, Normal Inspection - Respiratory Exam Respiratory Exam: NORMAL BREATHING PATTERN. absent: Wheezes, Respiratory Distress - Cardiovascular Exam Cardiovascular Exam: REGULAR RHYTHM, +S1, +S2 - GI/Abdominal Exam GI & Abdominal Exam: Normal Bowel Sounds, Soft, Tenderness (mild diffuse tenderness) - Extremities Exam Extremities exam: full ROM, normal capillary refill, pedal pulses present Additional comments: no calf tenderness - Back Exam Back exam: FULL ROM, NORMAL INSPECTION. absent: CVA tenderness (L), CVA tenderness (R), paraspinal tenderness, vertebral tenderness - Neurological Exam Neurological exam: Alert, CN II-XII Intact, Normal Gait, Oriented x3, Reflexes Normal - Psychiatric Exam Psychiatric exam: Normal Affect, Normal Mood - Skin Skin Exam: Dry, Normal Color, Warm Discharge Plan - Discharge Medications Prescriptions: Docusate [Colace] 100 mg PO BID #30 cap oxyCODONE/Acetaminophen [Percocet 5/325 mg Tab] 1 tab PO Q6 PRN #20 tab PRN Reason: Pain, Moderate (4-7) - Follow Up Plan Condition: GOOD Disposition: HOME/ ROUTINE Instructions: Bowel Obstruction (DC), Ventral Hernia Repair (DC) Additional Instructions: appt with Dr Morales in 1 wk ff up with PMD [place] Referrals: Moustapha Morales MD [Staff Provider] -
--- NOTE | 2017-01-24 08:27 | CP.PCM.PN ---
Subjective - Date & Time of Evaluation Date of Evaluation: 01/24/17 Time of Evaluation: 08:25 - Subjective Subjective: General Surgery - Dr. Lundy Pt S&E. CESAR. Pt still with some abdominal pain during transfer/ambulating which is to be expected. She states abdominal binder helps. She is tolerating regular diet and ambulated the halls with son yesterday. No N/V, F/C, Sob/Cp. Objective - Vital Signs/Intake and Output Vital Signs (last 24 hours): Temp Pulse Resp BP Pulse Ox 98.4 F 88 18 123/70 92 L 01/24/17 07:37 01/24/17 07:37 01/24/17 07:37 01/24/17 07:37 01/24/17 07:37 - Medications Medications: Current Medications Docusate Sodium (Colace) 100 mg PO BID MICHELLE Last Admin: 01/23/17 17:01 Dose: 100 mg Hydralazine HCl (Apresoline) 10 mg IV Q15M PRN PRN Reason: Systolic Blood Pressure Last Admin: 01/21/17 13:00 Dose: 10 mg Hydromorphone HCl (Dilaudid) 0.5 mg IVP Q3H PRN PRN Reason: Pain, severe (8-10) Last Admin: 01/23/17 15:30 Dose: 0.5 mg Ondansetron HCl (Zofran Inj) 4 mg IVP Q4H PRN PRN Reason: Nausea/Vomiting Last Admin: 01/22/17 16:28 Dose: 4 mg Oxycodone/Acetaminophen (Percocet 5/325 Mg Tab) 2 tab PO Q4 PRN PRN Reason: Pain, moderate (4-7) Stop: 01/26/17 08:21 Last Admin: 01/23/17 20:42 Dose: 2 tab - Labs Labs: 01/22/17 10:50 01/22/17 10:50 PT 10.4 SECONDS (9.6-11.2) 01/21/17 06:35 INR 1.00 (0.92-1.08) 01/21/17 06:35 APTT 24.2 SECONDS (23.3-32.5) 01/21/17 06:35 - Constitutional Appears: No Acute Distress - Head Exam Head Exam: ATRAUMATIC, NORMAL INSPECTION, NORMOCEPHALIC - Eye Exam Eye Exam: Normal appearance - Respiratory Exam Respiratory Exam: NORMAL BREATHING PATTERN. absent: Respiratory Distress - Cardiovascular Exam Cardiovascular Exam: REGULAR RHYTHM - GI/Abdominal Exam GI & Abdominal Exam: Soft. absent: Distended, Tenderness Additional comments: midline incision C/D/I with cindy and abdominal binder in place - Neurological Exam Neurological Exam: Alert, Oriented x3 - Psychiatric Exam Psychiatric exam: Normal Affect, Normal Mood - Skin Skin Exam: Dry, Intact Assessment and Plan - Assessment and Plan (Free Text) Assessment: 66F s/p repair of incarcerated ventral hernias, POD #3 -Tolerating regular diet and ambulating -Clear for D/C from surgical standpoint -Pt should F/u with Dr. Morales in office in 2 weeks -Continue regular diet and light activities, NO heavy lifting >10lbs for at least 4 weeks. Percocet PRN for pain. DW Dr. Andrew Hays PGY2
[2017-01-24] MEDS: Oxycodone/Acetaminophen 5/325 mg Tab PO PRN ×2 (08:46→12:54)
[2017-01-24 08:50] VITALS: O2SAT 96
--- NOTE | 2017-03-31 08:39 | OP ---
DATE: 01/21/2017 OPERATION PERFORMED: Exploratory laparotomy with repair of incarcerated ventral hernia with mesh. PREOPERATIVE DIAGNOSES: Small bowel obstruction and incarcerated ventral hernia. POSTOPERATIVE DIAGNOSES: Small bowel obstruction and incarcerated ventral hernia. SURGEON: Moustapha Morales MD TUMBLER DYEING MACHINE OPERATOR: Dr. Lundy, . ESTIMATED BLOOD LOSS: 10 mL. OPERATIVE PROCEDURE: The patient was taken to the operating room, placed supine on the operating table. After induction of general anesthesia, the abdomen was prepped and draped in the standard surgical fashion. The prior midline incision with multiple hernias, was then opened using a #10 blade. This was carried down through the skin and subcutaneous tissues. Care was taken not to damage the hernia sacs underneath. Once the hernia sac was encountered, the hernia sac was then opened. A finger was then inserted in the hernia sac and the hernia sac was opened completely using the electrocautery. Once the neck of the hernia sac was enlarged, the hernia was fully reduced. The patient then had palpation of the rest of the incision and the patient was found to have several hernias within the abdominal wall. The entire abdominal wall was then opened by using the electrocautery. Traction was used to pull the abdominal wall up and a hand was used to protect the bowel underneath. Once that was done, multiple adhesions were found to the hernia and the hernia sac. These were taken down sharply using the Metzenbaum scissors. Once the hernia was completely reduced, the patient had a 15 x 20 cm skirted mesh inserted into the peritoneal cavity. This was then tacked to the abdominal wall using the SecureStrap. Once that was done, manual inspection revealed there was good coverage of the hernia with no gaps within the tacking of the mesh. The patient then had the rest of the abdominal wall tacked down to the middle portion of the mesh using interrupted 2-0 Vicryl. The subcutaneous tissues were then re-approximated using 2-0 Vicryl and the skin was closed with cindy. The patient was then awakened from anesthesia, transported to the recovery in satisfactory condition. Sponge, instrument and needle counts were correct at the end of the case. Moustapha Morales MD [facility] # [id number]
== END 2017-01-24 14:29 | disposition home or self-care (01) | DRG 159 ==
LOC: H.ER 14:33 → OBSVTOIN 19:24 → H.EROBSV 19:24 → H.ERHOLD 19:35 → H.MEDSURG1 21:52
PROVIDERS: ADMIT Student in an Organized Health Care Education/Training Program; ATTEND Student in an Organized Health Care Education/Training Program
PROC: 0WUF0JZ Supplement Abdominal Wall with Synthetic Substitute, Open Approach (ICD-10-PCS; principal; 2017-01-21 10:00)
DX: K43.6 Other and unspecified ventral hernia with obstruction, without gangrene (principal); E87.6 Hypokalemia; Z85.41 Personal history of malignant neoplasm of cervix uteri

== ENCOUNTER 2017-11-23 00:08 | Observation (INO) | payer OTHER ==
[2017-11-23 00:09] VITALS: BMI 29.6
[2017-11-23] MEDS ORDERED: Sodium Chloride 0.9% 1,000 ML IV STA (00:50)
[2017-11-23] MEDS ORDERED: Morphine 4 MG/ML VIAL IVP ONE (01:03)
[2017-11-23 01:47] LABS: BASO % 0.3 % (0.0-2.0); EOS % 0.4 % (0.0-4.0); HEMOGLOBIN 15.1 g/dL (12.0-16.0); LYMPH # 0.7 K/uL (1.0-4.3); LYMPH % 9.3 % (20.0-40.0); MEAN CELL VOLUME 88.3 fl (81.0-99.0); MEAN CORPUSCULAR HEMOGLOBIN 30.5 pg (27.0-31.0); MEAN CORPUSCULAR HGB CONC 34.5 g/dL (33.0-37.0); MEAN PLATELET VOLUME 9.4 fl (7.2-11.7); MONO # 0.4 K/uL (0.0-0.8); NEUT # 6.2 K/uL (1.8-7.0); NRBC % 0.3 % (0.0-0.0); PLATELET COUNT 145 K/uL (130-400); RBC 4.95 Mil/uL (3.80-5.20); RED CELL DISTRIBUTION WIDTH 13.1 % (11.5-14.5); WHITE BLOOD COUNT 7.4 K/uL (4.8-10.8)
[2017-11-23] MEDS ORDERED: Morphine 4 MG/ML VIAL ONE (02:11)
[2017-11-23 02:14] LABS: INR 1.1 (0.9-1.2); PARTIAL THROMBOPLASTIN TIME 27.4 Seconds (25.6-37.1); PROTHROMBIN TIME 11.9 Seconds (9.8-13.1)
[2017-11-23 02:18] LABS: ALB/GLOB RATIO 0.9 (1.0-2.1); ALT/SGPT 43 U/L (9-52); AST/SGOT 40 U/L (14-36); BLOOD UREA NITROGEN 16 mg/dl (7-17); CALCIUM 10.5 mg/dL (8.4-10.2); GFR AFRICAN-AMERICAN > 60; GFR NON-AFRICAN AMERICAN > 60; LIPASE 48 U/L (23-300)
[2017-11-23] MEDS ORDERED: Iohexol 300 100 ML IJ ONE (02:18)
[2017-11-23] MEDS ORDERED: Sodium Chloride 0.9% 100 ML ONE (02:18)
--- NOTE | 2017-11-23 02:50 | ED PDOC ---
HPI:Nausea, Vomiting, Diarrhea Time Seen by Provider: 11/23/17 00:29 Chief Complaint (Nursing): GI Problem Chief Complaint (Provider): Vomiting & Diarrhea History Per: Patient History/Exam Limitations: no limitations Onset/Duration Of Symptoms: Days (x2) Current Symptoms Are (Timing): Still Present Associated Symptoms: Fever, Vomiting, Diarrhea Additional Complaint(s): 66 year old female presents to ED with complaints of vomiting and diarrhea x2 days and has a past medical history of SBO and cervical cancer (chemotherapy and radiation at [facility]). Notes over 10 episodes of both vomiting and diarrhea and states that today her diarrhea appeared to have a small amount of blood in it. (+) fever, cough, chills, body aches, and head ache. Patient confirms she received the flu vaccine this flu season. Of note, patient returned from [place] and [facility] 1 week ago. PCP: None Past Medical History Reviewed: Historical Data, Nursing Documentation, Vital Signs Vital Signs: Last Vital Signs Temp 97.8 F 11/23/17 00:25 Pulse 83 11/23/17 00:25 Resp 17 11/23/17 00:25 BP 132/73 11/23/17 00:25 Pulse Ox 96 11/23/17 00:25 - Medical History PMH: Malignancy (cervical CA) Denies: Chronic Kidney Disease - Surgical History Surgical History: Appendectomy, Cholecystectomy, Hernia Repair Denies: Back Surgery, CABG Other surgeries: Hysterectomy - Family History Family History: States: Unknown Family Hx - Social History Current smoker - smoking cessation education provided: No Ex-Smoker (has not smoked in the last 12 months): No Alcohol: None Drugs: Denies - Immunization History Hx Influenza Vaccination: Yes - Home Medications Home Medications: Ambulatory Orders Medication Instructions Recorded No Known Home Med 11/23/17 - Allergies Allergies/Adverse Reactions: Allergies Allergy/AdvReac Type Severity Reaction Status Date / Time No Known Allergies Allergy Verified 01/20/17 14:38 Review of Systems ROS Statement: Except As Marked, All Systems Reviewed And Found Negative Constitutional: Positive for: Fever, Chills, Other ((+) body aches) Respiratory: Positive for: Cough Gastrointestinal: Positive for: Vomiting, Diarrhea (with small amounts of blood) Neurological: Positive for: Headache Physical Exam - Reviewed Nursing Documentation Reviewed: Yes Vital Signs Reviewed: Yes - Physical Exam Appears: Positive for: Non-toxic, Uncomfortable Skin: Positive for: Normal Color, Warm, Dry Eye Exam: Positive for: Normal appearance, EOMI, PERRL ENT: Negative for: Normal ENT Inspection (dry mucous membranes) Cardiovascular/Chest: Positive for: Regular Rate, Rhythm. Negative for: Murmur Respiratory: Positive for: Normal Breath Sounds. Negative for: Respiratory Distress Gastrointestinal/Abdominal: Positive for: Soft, Tenderness (diffuse lower abdominal tenderness). Negative for: Normal Exam Extremity: Positive for: Normal ROM. Negative for: Deformity Neurologic/Psych: Positive for: Alert, Oriented. Negative for: Motor/Sensory Deficits - Laboratory Results Result Diagrams: 11/23/17 01:43 11/23/17 01:43 - ECG O2 Sat by Pulse Oximetry: 96 (RA) Pulse Ox Interpretation: Normal Medical Decision Making Medical Decision Makin Initial impression: vomiting, diarrhea, flu-like symptoms Initial plan: * ABO/RH type * T&S * CTA A/P * EKG * Labs * Lact Acid * Lipase * PTT/PT * Morphine 4mg IVP * NS IV * Reglan 10mg IVPB * BCx * Stool Cx * C DIFF TOXIN A B * Fecal Leukocytes * Occult blood, stool * Re-eval 0347 CT FINDINGS: Cholecystectomy clips are present. There is trace intrahepatic duct dilation likely secondary to cholecystectomy. The liver is normal. The spleen and pancreas are normal. There is a stable left renal cysts. The wall of the urinary bladder appears thickened and indistinct possibly representing cystitis. Recommend correlation with urinalysis. The previously struck pain ventral hernia has been repaired. There is no longer herniation of bowel through the fascia. There is a small amount of dual D. herniation. The lack of luminal distention with contrast limits evaluation for bowel wall thickness however there appears to be diffuse edema a prominent wall enhancement of the sigmoid colon and rectum, and to a lesser degree in the remainder of the colon. The appearance raises concern for diffuse colitis although it is somewhat unusual in that there is no stranding in the surrounding fat. Difficult to completely exclude an underlying lesion at the rectosigmoid junction where the thickening appears particularly prominent. Recommend colonoscopy if not done previously. There is presacral soft tissue stranding and soft tissue density similar to prior of uncertain etiology. The appendix is not identified however there are no secondary signs of appendicitis such as pericecal stranding. Hysterectomy. IMPRESSION: Edema and prominent mucosal enhancement in the sigmoid colon and rectum and to a lesser degree in the remainder of the colon supportive of acute infectious/ inflammatory process or other edema causing process. The thickening is particularly prominent at the rectosigmoid junction making it difficult to exclude underlying lesion.Colonoscopy is recommended. 0353 Patient will be admitted for acute colitis under Dr. Scott (hospitalist) - INPATIENT MED/SURG Condition: fair Scribe Attestation: Documented by Princess Bowden acting as a scribe for Que Walden MD. Scribe Attestation: All medical record entries made by the Scribe were at my direction and personally dictated by me. I have reviewed the chart and agree that the record accurately reflects my personal performance of the history, physical exam, medical decision making, and the department course for this patient. I have also personally directed, reviewed, and agree with the discharge instructions and disposition. Disposition - Clinical Impression Clinical Impression: Colitis - Patient ED Disposition Is Patient to be Admitted: Yes Discussed With : Chaitanya Scott - Disposition Disposition Time: 03:52 Condition: FAIR - Pt Status Changed To: Hospital Disposition Of: Inpatient (MED/SURG) - Admit Certification Admit to Inpatient:: After my assessment, the patient will require hospitalization for at least two midnights. This is because of the severity of symptoms shown, intensity of services needed, and/or the medical risk in this patient being treated as an outpatient.
[2017-11-23 03:26] LABS: NEUTROPHIL 86 % (42-75); TOTAL CELLS COUNTED 100
[2017-11-23 03:27] LABS: LYMPHOCYTE 8 % (20-50); MONOCYTE 6 % (0-10); PLATELET ESTIMATE NORMAL (NORMAL)
--- NOTE | 2017-11-23 03:48 | CT ---
EXAM: CT Abdomen and Pelvis With Intravenous Contrast EXAM DATE/TIME: 11/23/2017 1:03 AM CLINICAL HISTORY: 66 years old, female; Signs and symptoms; Fever; Prior surgery; Surgery date: 6+ months; Surgery type: Hysterectomy; Additional info: V/d, fever HX hysterecytomy TECHNIQUE: Axial computed tomography images of the abdomen and pelvis with intravenous contrast. All CT scans at this facility use one or more dose reduction techniques, viz.: automated exposure control; ma/kV adjustment per patient size (including targeted exams where dose is matched to indication; i.e. head); or iterative reconstruction technique. Coronal and sagittal reformatted images were created and reviewed. CONTRAST: 90 mL of [id number] administered intravenously. COMPARISON: CT - ABD PELVIS PO IV CONTRAST 2017-01-20 17:26 FINDINGS: Cholecystectomy clips are present. There is trace intrahepatic duct dilation likely secondary to cholecystectomy. The liver is normal. The spleen and pancreas are normal. There is a stable left renal cysts. The wall of the urinary bladder appears thickened and indistinct possibly representing cystitis. Recommend correlation with urinalysis. The previously struck pain ventral hernia has been repaired. There is no longer herniation of bowel through the fascia. There is a small amount of dual D. herniation. The lack of luminal distention with contrast limits evaluation for bowel wall thickness however there appears to be diffuse edema a prominent wall enhancement of the sigmoid colon and rectum, and to a lesser degree in the remainder of the colon. The appearance raises concern for diffuse colitis although it is somewhat unusual in that there is no stranding in the surrounding fat. Difficult to completely exclude an underlying lesion at the rectosigmoid junction where the thickening appears particularly prominent. Recommend colonoscopy if not done previously. There is presacral soft tissue stranding and soft tissue density similar to prior of uncertain etiology. The appendix is not identified however there are no secondary signs of appendicitis such as pericecal stranding. Hysterectomy. IMPRESSION: Edema and prominent mucosal enhancement in the sigmoid colon and rectum and to a lesser degree in the remainder of the colon supportive of acute infectious/inflammatory process or other edema causing process. The thickening is particularly prominent at the rectosigmoid junction making it difficult to exclude underlying lesion.Colonoscopy is recommended.
[2017-11-23] MEDS ORDERED: metroNIDAZOLE 500mg/100ml NS 100 ML IVPB STA (03:50)
[2017-11-23] MEDS ORDERED: Ciprofloxacin 400mg/200ml D5W 400 MG/200 ML BAG IV STA (03:50)
[2017-11-23] MEDS ORDERED: Oxycodone/Acetaminophen 5/325 mg Tab PO PRN (04:08)
--- NOTE | 2017-11-23 04:16 | CP.PCM.HP ---
History of Present Illness - History of Present Illness History of Present Illness: CC: abd pain, n/v/d HPI: This is a 66 y/o female with no chronic medical conditions. She comes in with c/o 2 days of n/v/d. Per report, she has had numerous episodes of both vomiting and diarrhea, and diarrhea have had trace blood. Also has diffuse abdominal pain. May have had a fever. Denies chills. Denies CP/SOB. patient has traveled out of the country to [place] and [facility] about one week prior to onset of illness, however, does not remember consuming anything unusual specifically. ROS: 14 systems reviewed, negative other than HPI MHx: Cerv CA s/p chemo and radiation in past; SBO in past SHx: Appendectomy, Cholecystectomy, Hernia repair, Hysterectomy Allergies: NKDA Medications: As per med rec Family Hx: No relevant findings Social Hx: Lives with family, no tobacco, no significant EtOH Surrogate: Daughter, info in chart Present on Admission - Present on Admission Any Indicators Present on Admission: No Past Patient History - Infectious Disease Hx of Infectious Diseases: None - Past Medical History & Family History Past Medical History?: Yes - Past Social History Alcohol: None Drugs: Denies - CARDIAC Hx Cardiac Disorders: No - PULMONARY Hx Respiratory Disorders: Yes Other/Comment: lt. lung effusion - NEUROLOGICAL Hx Neurological Disorder: No - HEENT Hx HEENT Problems: No - RENAL Hx Chronic Kidney Disease: No - ENDOCRINE/METABOLIC Hx Endocrine Disorders: No - HEMATOLOGICAL/ONCOLOGICAL Hx Blood Disorders: Yes (Cervical cancer) - INTEGUMENTARY Hx Dermatological Problems: No - MUSCULOSKELETAL/RHEUMATOLOGICAL Hx Musculoskeletal Disorders: Yes Hx Falls: Yes - GASTROINTESTINAL Hx Gastrointestinal Disorders: No - GENITOURINARY/GYNECOLOGICAL Hx Genitourinary Disorders: Yes Hx Cervical Cancer: Yes - PSYCHIATRIC Hx Psychophysiologic Disorder: No Hx Substance Use: No - SURGICAL HISTORY Hx Appendectomy: Yes Hx Cholecystectomy: Yes Hx Coronary Artery Bypass Graft: No - ANESTHESIA Hx Anesthesia: Yes Hx Anesthesia Reactions: No Meds Allergies/Adverse Reactions: Allergies Allergy/AdvReac Type Severity Reaction Status Date / Time No Known Allergies Allergy Verified 01/20/17 14:38 Physical Exam - Constitutional Appears: No Acute Distress - Head Exam Head Exam: ATRAUMATIC, NORMOCEPHALIC - Eye Exam Eye Exam: EOMI, PERRL - ENT Exam ENT Exam: Mucous Membranes Moist - Neck Exam Neck exam: Positive for: Full Rom - Respiratory Exam Respiratory Exam: Clear to Auscultation Bilateral, NORMAL BREATHING PATTERN - Cardiovascular Exam Cardiovascular Exam: REGULAR RHYTHM, +S1, +S2 - GI/Abdominal Exam GI & Abdominal Exam: Normal Bowel Sounds, Soft Additional comments: no rigidity, rebound or guarding - Extremities Exam Extremities exam: Positive for: full ROM, normal inspection - Neurological Exam Neurological exam: Alert, CN II-XII Intact, Oriented x3 - Psychiatric Exam Psychiatric exam: Normal Affect, Normal Mood - Skin Skin Exam: Dry, Warm Results - Vital Signs Recent Vital Signs: Last Vital Signs Temp 99.1 F 11/23/17 03:11 Pulse 70 11/23/17 03:11 Resp 24 11/23/17 03:11 BP 119/58 L 11/23/17 03:11 Pulse Ox 96 11/23/17 03:54 - Labs Result Diagrams: 11/23/17 01:43 11/23/17 01:43 Labs: Laboratory Results - last 24 hr 11/23/17 11/23/17 11/23/17 00:56 01:37 01:43 WBC RBC Hgb Hct MCV MCH MCHC RDW Plt Count MPV Neut % (Auto) Lymph % (Auto) [place] % (Auto) Eos % (Auto) Baso % (Auto) Neut # (Auto) Lymph # (Auto) [place] # (Auto) Eos # (Auto) Baso # (Auto) Neutrophils % (Manual) Lymphocytes % (Manual) Monocytes % (Manual) Platelet Estimate RBC Morphology PT INR APTT Sodium 138 Potassium 3.4 L Chloride 101 Carbon Dioxide 25 Anion Gap 15 BUN 16 Creatinine 0.9 Est GFR ( Amer) > 60 Est GFR (Non-Af Amer) > 60 Random Glucose 114 H Lactic Acid 1.1 Calcium 10.5 H Total Bilirubin 0.9 AST 40 H ALT 43 Alkaline Phosphatase 113 Total Protein 8.4 H Albumin 4.0 Globulin 4.4 H Albumin/Globulin Ratio 0.9 L Lipase 48 Blood Type O POSITIVE Antibody Screen Negative BBK History Checked Patient has bt 11/23/17 11/23/17 01:43 01:43 WBC 7.4 RBC 4.95 Hgb 15.1 D Hct 43.7 MCV 88.3 MCH 30.5 MCHC 34.5 RDW 13.1 Plt Count 145 MPV 9.4 Neut % (Auto) 84.0 H Lymph % (Auto) 9.3 L [place] % (Auto) 6.0 Eos % (Auto) 0.4 Baso % (Auto) 0.3 Neut # (Auto) 6.2 Lymph # (Auto) 0.7 L [place] # (Auto) 0.4 Eos # (Auto) 0.0 Baso # (Auto) 0.0 Neutrophils % (Manual) 86 H Lymphocytes % (Manual) 8 L Monocytes % (Manual) 6 Platelet Estimate Normal RBC Morphology Normal PT 11.9 INR 1.1 APTT 27.4 Sodium Potassium Chloride Carbon Dioxide Anion Gap BUN Creatinine Est GFR ( Amer) Est GFR (Non-Af Amer) Random Glucose Lactic Acid Calcium Total Bilirubin AST ALT Alkaline Phosphatase Total Protein Albumin Globulin Albumin/Globulin Ratio Lipase Blood Type Antibody Screen BBK History Checked - Imaging and Cardiology CT scan - abdomen Status: Image reviewed by me (rectum, sigmoid colon colitis as well as throughout colon), Report reviewed by me Assessment & Plan (1) Colitis Assessment and Plan: 66 y/o female presenting with likely infectious colitis in setting of recent travel. -f/u stool studies, C diff, cultures -Cont cipro/flagyl IV -Cont Zofran IV for nausea; continue pain control -IVF for now with clear liq diet -SCDs for DVT PPx Status: Acute (2) DVT prophylaxis Status: Acute
[2017-11-23] MEDS ORDERED: Lactated Ringer's 1,000 ML IV SCH (04:30)
[2017-11-23] MEDS ORDERED: Ciprofloxacin 400mg/200ml D5W 400 MG/200 ML BAG IVPB ONE (04:54)
[2017-11-23 07:48] VITALS: BP 122/56; TEMP 99.1; O2SAT 95
[2017-11-23] MEDS ORDERED: metroNIDAZOLE 500mg/100ml NS 100 ML IVPB SCH (09:00)
[2017-11-23 10:06] VITALS: PULSE 62; RESP 20
[2017-11-23] MEDS ORDERED: Atropine-Diphenoxylate 0.025-2.5 mg Tab PO ONE (12:45)
--- NOTE | 2017-11-23 14:13 | CP.PCM.DIS ---
Provider - Provider Date of Admission: 11/23/17 03:52 Attending physician: Chaitanya Scott MD Primary care physician: none Consults: none Time Spent in preparation of Discharge (in minutes): 25 Hospital Course - Lab Results Lab Results: Most Recent Lab Values WBC 7.4 K/uL (4.8-10.8) 11/23/17 01:43 RBC 4.95 Mil/uL (3.80-5.20) 11/23/17 01:43 Hgb 15.1 g/dL (12.0-16.0) D 11/23/17 01:43 Hct 43.7 % (34.0-47.0) 11/23/17 01:43 MCV 88.3 fl (81.0-99.0) 11/23/17 01:43 MCH 30.5 pg (27.0-31.0) 11/23/17 01:43 MCHC 34.5 g/dL (33.0-37.0) 11/23/17 01:43 RDW 13.1 % (11.5-14.5) 11/23/17 01:43 Plt Count 145 K/uL (130-400) 11/23/17 01:43 MPV 9.4 fl (7.2-11.7) 11/23/17 01:43 Neut % (Auto) 84.0 % (50.0-75.0) H 11/23/17 01:43 Lymph % (Auto) 9.3 % (20.0-40.0) L 11/23/17 01:43 [place] % (Auto) 6.0 % (0.0-10.0) 11/23/17 01:43 Eos % (Auto) 0.4 % (0.0-4.0) 11/23/17 01:43 Baso % (Auto) 0.3 % (0.0-2.0) 11/23/17 01:43 Neut # (Auto) 6.2 K/uL (1.8-7.0) 11/23/17 01:43 Lymph # (Auto) 0.7 K/uL (1.0-4.3) L 11/23/17 01:43 [place] # (Auto) 0.4 K/uL (0.0-0.8) 11/23/17 01:43 Eos # (Auto) 0.0 K/uL (0.0-0.7) 11/23/17 01:43 Baso # (Auto) 0.0 K/uL (0.0-0.2) 11/23/17 01:43 Neutrophils % (Manual) 86 % (42-75) H 11/23/17 01:43 Lymphocytes % (Manual) 8 % (20-50) L 11/23/17 01:43 Monocytes % (Manual) 6 % (0-10) 11/23/17 01:43 Platelet Estimate Normal (NORMAL) 11/23/17 01:43 RBC Morphology Normal (NORMAL) 11/23/17 01:43 PT 11.9 Seconds (9.8-13.1) 11/23/17 01:43 INR 1.1 (0.9-1.2) 11/23/17 01:43 APTT 27.4 Seconds (25.6-37.1) 11/23/17 01:43 Sodium 138 mmol/l (132-148) 11/23/17 01:43 Potassium 3.4 MMOL/L (3.6-5.0) L 11/23/17 01:43 Chloride 101 mmol/L (98-107) 11/23/17 01:43 Carbon Dioxide 25 mmol/L (22-30) 11/23/17 01:43 Anion Gap 15 (10-20) 11/23/17 01:43 BUN 16 mg/dl (7-17) 11/23/17 01:43 Creatinine 0.9 mg/dl (0.7-1.2) 11/23/17 01:43 Est GFR ( Amer) > 60 11/23/17 01:43 Est GFR (Non-Af Amer) > 60 11/23/17 01:43 Random Glucose 114 mg/dL (65-105) H 11/23/17 01:43 Lactic Acid 1.1 MMOL/L (0.7-2.1) 11/23/17 01:37 Calcium 10.5 mg/dL (8.4-10.2) H 11/23/17 01:43 Total Bilirubin 0.9 mg/dl (0.2-1.3) 11/23/17 01:43 AST 40 U/L (14-36) H 11/23/17 01:43 ALT 43 U/L (9-52) 11/23/17 01:43 Alkaline Phosphatase 113 U/L (38-126) 11/23/17 01:43 Total Protein 8.4 G/DL (6.3-8.2) H 11/23/17 01:43 Albumin 4.0 g/dL (3.5-5.0) 11/23/17 01:43 Globulin 4.4 gm/dL (2.2-3.9) H 11/23/17 01:43 Albumin/Globulin Ratio 0.9 (1.0-2.1) L 11/23/17 01:43 Lipase 48 U/L (23-300) 11/23/17 01:43 Influenza Typ A,B (EIA) Negative for flu a/b (NEGATIVE) 11/23/17 06:30 Blood Type O POSITIVE 11/23/17 00:56 Antibody Screen Negative 11/23/17 00:56 BBK History Checked Patient has bt 11/23/17 00:56 - Hospital Course Hospital Course: This is a 66 year old female with no past medical history who had recent travel out of the country to [place] and [facility] about 1 week ago, who presented to the ED on 11/23/2017 with the complaint of progressively worsening nausea, vomiting, and diarrhea x 2 days, associated with crampy diffuse abdominal pain. In the ED the patient was found to have so significant laboratory abnormalities. CT scan of the abdomen revealed acute colitis with thickening at the rectosigmoid junction for which a colonoscopy is being recommended by the radiologist. The patient was subsequently placed on observation for colitis and was given Cipro and Flagyl for possible infections bacterial colitis. This morning, the patient states that she feels much better other than c/o mild headache. She says her nausea is resolved and diarrhea has improved. The patient is being discharged to home in stable condition and is to f/u with Dr. Haskins, GI production operator, for outpatient colonoscopy. Assessment & Plan (1) Colitis 66 y/o female presenting with likely infectious colitis in setting of recent travel. -f/u stool studies as outpatient - Flu negative -Continue 1 week of Cipro 500 mg po q 12 hours and Flagyl 500 mg po q 12 hours - Tolerating regular diet (2) DVT prophylaxis Status: Acute - Received SCDs during his stay in the hospital Discharge Exam - Head Exam Head Exam: ATRAUMATIC, NORMOCEPHALIC - Additional Findings Additional findings: Physical exam: Constitutional- female, NAD, cooperative, awake, alert Head- NCAT, PERRL Eye- PERRL, EOMI ENT- normal exam, MMM. Neck- normal inspection, supple, no JVD Respiratory- CTAB, no wheezes rales rhonchi Cardiovascular- RRR, +S1, +S2 no MRG GI/Abdominal- normal bowel sounds, soft, no mass, no hsm Skin- warm, dry Extremities Exam- normal capillary refill, normal inspection Neurological Exam- alert, awake, oriented Psych- normal mood, normal affect Discharge Plan - Discharge Medications Prescriptions: Ciprofloxacin HCl [Cipro] 500 mg PO Q12H 7 Days #14 tablet Dicyclomine [Dicyclomine HCl] 10 mg PO BID PRN #20 cap PRN Reason: Irritable Bowel Symptoms Metronidazole [Flagyl] 500 mg PO Q12H 7 Days #14 tablet - Follow Up Plan Condition: FAIR Disposition: HOME/ ROUTINE
[2017-11-23] MEDS ORDERED: Ciprofloxacin 400mg/200ml D5W 400 MG/200 ML BAG IVPB SCH (17:00)
--- NOTE | 2017-11-23 23:57 | CARD ---
APPROVED REPORT EKG Measurement Heart [id number] <Conclusion> Normal sinus rhythm Normal ECG
== END 2017-11-23 14:17 | disposition home or self-care (01) ==
LOC: H.ER 00:08 → H.ERHOLD 03:52 → INTOOBSV 03:52 → H.MEDSURG1 05:56
PROVIDERS: ADMIT Internal Medicine; ATTEND Internal Medicine
DX: A09 Infectious gastroenteritis and colitis, unspecified (principal); Z85.41 Personal history of malignant neoplasm of cervix uteri; Z90.49 Acquired absence of other specified parts of digestive tract; Z90.710 Acquired absence of both cervix and uterus
CPT/HCPCS: 74177; 80053; 83605; 83690; 85025; 85610; 85730; 86850; 86900; 87045; 87804; 89055; 93005; 96361; 96365; 96367; 96375; 99283; G0328; G0378; J0744; J2270; J2765; J7040; J7120; Q9967

== ENCOUNTER 2017-11-24 14:42 | Emergency (ER) | payer OTHER ==
[2017-11-24 14:43] VITALS: BMI 29.6
[2017-11-24 15:05] VITALS: BP 125/67; PULSE 76; RESP 18; TEMP 98.3; O2SAT 99
--- NOTE | 2017-11-24 16:39 | ED PDOC ---
HPI: Abdomen Time Seen by Provider: 11/24/17 15:42 Chief Complaint (Nursing): GI Problem Additional Complaint(s): Pt discharged from hospital yesterday with dx colitis with Rx Cipro and Flagyl. Daughter states blood from rectum returned and tried to contact Hospitalist on 6th floor but no one could answer her questions about GI referral so came to ED for names of GI doctors and questions about the antibiotics. Daughter states patient did not take either Cipro or Flagyl today because they had questions. Pt states abdominal pain 3/10 today, was 10/10 during hospital admission. Pt and daughter refusing physical exam and blood work, only wants GI referral. Past Medical History Reviewed: Nursing Documentation, Vital Signs Vital Signs: Last Vital Signs Temp 98.3 F 11/24/17 15:02 Pulse 76 11/24/17 15:02 Resp 18 11/24/17 15:02 BP 125/67 11/24/17 15:02 Pulse Ox 99 11/24/17 15:02 - Medical History PMH: Malignancy (cervical CA) Denies: Chronic Kidney Disease - Surgical History Surgical History: Appendectomy, Cholecystectomy, Hernia Repair Denies: Back Surgery, CABG - Family History Family History: States: Unknown Family Hx - Immunization History Hx Influenza Vaccination: Yes - Home Medications Home Medications: Ambulatory Orders Medication Instructions Recorded Ciprofloxacin HCl [Cipro] 500 mg PO Q12H 7 Days #14 tablet 11/23/17 Dicyclomine [Dicyclomine HCl] 10 mg PO BID PRN #20 cap 11/23/17 Metronidazole [Flagyl] 500 mg PO Q12H 7 Days #14 tablet 11/23/17 - Allergies Allergies/Adverse Reactions: Allergies Allergy/AdvReac Type Severity Reaction Status Date / Time No Known Allergies Allergy Verified 01/20/17 14:38 Review of Systems Constitutional: Negative for: Fever Gastrointestinal: Positive for: Abdominal Pain, Diarrhea, Hematochezia Physical Exam - Reviewed Nursing Documentation Reviewed: Yes Vital Signs Reviewed: Yes (Pt refused.) - ECG O2 Sat by Pulse Oximetry: 99 Medical Decision Making Medical Decision Makin yo female Disposition - Clinical Impression Clinical Impression: Colitis - Disposition Referrals: Rony Haskins MD [Medical Doctor] - Disposition: Against Medical Advice Disposition Time: 16:46 Condition: UNKNOWN Forms: [employer] (Lao) Print Language: L[place]
== END 2017-11-24 16:50 | disposition left against medical advice (07) ==
LOC: H.ER 14:42
DX: K52.9 Noninfective gastroenteritis and colitis, unspecified (principal)

== ENCOUNTER 2018-02-05 11:49 | Inpatient (IN) | payer SELFPAY ==
[2018-02-05 12:08] VITALS: BMI 27.2
[2018-02-05] MEDS ORDERED: Sodium Chloride 0.9% 1,000 ML IV STA (12:47)
--- NOTE | 2018-02-05 12:50 | ED PDOC ---
HPI: Abdomen Time Seen by Provider: 02/05/18 12:21 Chief Complaint (Provider): Abd pain History Per: Patient History/Exam Limitations: no limitations Onset/Duration Of Symptoms: Days (October) Additional Complaint(s): Pt. with abd pain left lower since October. Diagnosed with colitis and admitted then. She was discharged with antibiotics and saw Dr. Haskins. Was scheduled for a colonoscopy, but now it is in Jul. Pt. saw her today and she was advised to go to the ER as pt. still has pain. No nausea, vomit, diarrhea, weakness, bloody stool, chest pain, dyspnea, back pain. Past Medical History Reviewed: Nursing Documentation, Vital Signs Vital Signs: Last Vital Signs Temp 98.5 F 02/05/18 12:52 Pulse 85 02/05/18 12:52 Resp 16 02/05/18 12:52 BP 139/89 02/05/18 12:52 Pulse Ox 99 02/05/18 12:57 - Medical History PMH: Malignancy (cervical CA) Denies: Chronic Kidney Disease Other PMH: colitis - Surgical History Surgical History: Appendectomy, Cholecystectomy, Hernia Repair Denies: Back Surgery, CABG - Family History Family History: States: Unknown Family Hx - Living Arrangements Living Arrangements: With Family - Social History Alcohol: None Drugs: Denies - Immunization History Hx Influenza Vaccination: Yes - Home Medications Home Medications: Ambulatory Orders Medication Instructions Recorded Ciprofloxacin HCl [Cipro] 500 mg PO Q12H 7 Days #14 tablet 11/23/17 Dicyclomine [Dicyclomine HCl] 10 mg PO BID PRN #20 cap 11/23/17 Metronidazole [Flagyl] 500 mg PO Q12H 7 Days #14 tablet 11/23/17 - Allergies Allergies/Adverse Reactions: Allergies Allergy/AdvReac Type Severity Reaction Status Date / Time No Known Allergies Allergy Verified 01/20/17 14:38 Review of Systems ROS Statement: Except As Marked, All Systems Reviewed And Found Negative Gastrointestinal: Positive for: Abdominal Pain Physical Exam - Reviewed Nursing Documentation Reviewed: Yes Vital Signs Reviewed: Yes - Physical Exam Appears: Positive for: Non-toxic, No Acute Distress Head Exam: Positive for: ATRAUMATIC, NORMAL INSPECTION, NORMOCEPHALIC Skin: Positive for: Normal Color, Warm, DRY Eye Exam: Positive for: EOMI, Normal appearance, PERRL ENT: Positive for: Normal ENT Inspection Neck: Positive for: Normal, Painless ROM Cardiovascular/Chest: Positive for: Regular Rate, Rhythm Respiratory: Positive for: CNT, Normal Breath Sounds Gastrointestinal/Abdominal: Positive for: Normal Exam, Soft, Tenderness (left lower) Back: Positive for: Normal Inspection. Negative for: L CVA Tenderness, R CVA Tenderness Extremity: Positive for: Normal ROM. Negative for: Tenderness, Pedal Edema Neurologic/Psych: Positive for: Alert, Oriented - Laboratory Results Result Diagrams: 02/05/18 13:20 02/05/18 13:20 Interpretation Of Abn Labs: no acute - ECG O2 Sat by Pulse Oximetry: 99 Pulse Ox Interpretation: Normal - Progress ED Course And Treament: 1400: Spoke with fellow for Dr. Haskins. Will consult. Want pt. to get IV antibiotics and admit to residents. Spoke with [facility] resident. Will admit. Disposition - Clinical Impression Clinical Impression: Abdominal pain, Colitis - Patient ED Disposition Is Patient to be Admitted: Yes Counseled Patient/Family Regarding: Studies Performed, Diagnosis - Disposition Disposition Time: 14:10 Condition: FAIR - Pt Status Changed To: Hospital Disposition Of: Inpatient - Admit Certification Admit to Inpatient:: After my assessment, the patient will require hospitalization for at least two midnights. This is because of the severity of symptoms shown, intensity of services needed, and/or the medical risk in this patient being treated as an outpatient. - POA Present On Arrival: None
[2018-02-05 13:00] VITALS: TEMP 98.5
[2018-02-05 13:38] LABS: VENOUS BLOOD GAS BASE EXCESS 0.2 mmol/L (0.0-2.0); VENOUS BLOOD GAS PCO2 51 mmHg (40-60); VENOUS BLOOD GAS PO2 25 mm/Hg (30-55); VENOUS BLOOD PH 7.33 (7.32-7.43)
[2018-02-05 13:41] LABS: BASO % 0.5 % (0.0-2.0); EOS # 0.2 K/uL (0.0-0.7); EOS % 3.8 % (0.0-4.0); LYMPH # 1.8 K/uL (1.0-4.3); MEAN CELL VOLUME 88.2 fl (81.0-99.0); MEAN CORPUSCULAR HEMOGLOBIN 30.3 pg (27.0-31.0); MEAN CORPUSCULAR HGB CONC 34.4 g/dL (33.0-37.0); MEAN PLATELET VOLUME 9.2 fl (7.2-11.7); MONO # 0.4 K/uL (0.0-0.8); NEUT % 54.7 % (50.0-75.0); NRBC % 0.1 % (0.0-0.0); RBC 4.29 Mil/uL (3.80-5.20); RED CELL DISTRIBUTION WIDTH 13.7 % (11.5-14.5); WHITE BLOOD COUNT 5.5 K/uL (4.8-10.8)
[2018-02-05 13:49] LABS: ALBUMIN 4.1 g/dL (3.5-5.0); ALT/SGPT 20 U/L (9-52); AST/SGOT 29 U/L (14-36); BLOOD UREA NITROGEN 13 mg/dl (7-17); CALCIUM 9.3 mg/dL (8.4-10.2); GFR AFRICAN-AMERICAN > 60; GFR NON-AFRICAN AMERICAN > 60; PARTIAL THROMBOPLASTIN TIME 25.7 Seconds (25.6-37.1); PROTHROMBIN TIME 11.2 Seconds (9.8-13.1)
[2018-02-05] MEDS ORDERED: Ciprofloxacin 400mg/200ml D5W 400 MG/200 ML BAG IV STA (14:08)
[2018-02-05] MEDS ORDERED: metroNIDAZOLE 500mg/100ml NS 100 ML IV STA (14:08)
[2018-02-05] MEDS ORDERED: metroNIDAZOLE 500mg/100ml NS 100 ML IVPB ONE (14:52)
[2018-02-05] MEDS ORDERED: Ciprofloxacin 400mg/200ml D5W 400 MG/200 ML BAG IVPB ONE (14:53)
[2018-02-05] MEDS ORDERED: Dextrose 5%/0.45% NS 1,000 ML IV SCH (15:00)
--- NOTE | 2018-02-05 15:27 | CP.PCM.CON ---
<Dayana Santacruz - Last Filed: 02/05/18 15:28> History of Present Illness - History of Present Illness History of Present Illness: Gastroenterology Fellow/PGY5 Consult Note 67 year old female with PMH of Cervical cancer s/p chemoradiation six years ago , SBO 2/2 ventral hernia incarceration s/p hernia repair 12/2016, hysterectomy, appendectomy, and cholecystectomy presenting from [facility] for abdominal pain. Recent hospitalization to [facility] October 2017 for abdominal pain and bloody diarrhea with CT imaging showed edema and mucosal enhancement of sigmoid and rectum concerning for underlying lesion s/p cipro/flagyl antibiotic course. Notes resolved bloody diarrhea but continue to have intermittent abdominal pain. She describes left lower abdomen sharp pain (pain scale 8/10) and 3-4 loose bowel movements/day for the last three days. Denies fevers, chills, sweats , nausea, vomiting, hematemesis, constipation, melena, hematochezia, recent travel, recent antibiotics, sick contacts, or unintentional weight loss. EGD/ Colonoscopy four years ago at [facility] endorsed to show gastritis and no polyps per daughter. Family History- denies stomach cancer, colon cancer Social History- denies tobacco, alcohol illicit drug use Surgical History- SBO s/p ventral hernia repair 12/2016, hysterectomy, appendectomy, cholecystectomy Review of Systems - Review of Systems Review of Systems: 12-point review of systems negative except for as above Past Patient History - Infectious Disease Hx of Infectious Diseases: None - Past Medical History & Family History Past Medical History?: Yes - Past Social History Alcohol: None Drugs: Denies - CARDIAC Hx Cardiac Disorders: No - PULMONARY Hx Respiratory Disorders: Yes - NEUROLOGICAL Hx Neurological Disorder: No - HEENT Hx HEENT Problems: No - RENAL Hx Chronic Kidney Disease: No - ENDOCRINE/METABOLIC Hx Endocrine Disorders: No - HEMATOLOGICAL/ONCOLOGICAL Hx Blood Disorders: Yes (Cervical cancer) - INTEGUMENTARY Hx Dermatological Problems: No - MUSCULOSKELETAL/RHEUMATOLOGICAL Hx Musculoskeletal Disorders: Yes Hx Falls: No - GASTROINTESTINAL Hx Gastrointestinal Disorders: No - GENITOURINARY/GYNECOLOGICAL Hx Genitourinary Disorders: Yes - PSYCHIATRIC Hx Psychophysiologic Disorder: No Hx Substance Use: No - SURGICAL HISTORY Hx Appendectomy: Yes Hx Cholecystectomy: Yes Hx Coronary Artery Bypass Graft: No - ANESTHESIA Hx Anesthesia: Yes Hx Anesthesia Reactions: No Meds Allergies/Adverse Reactions: Allergies Allergy/AdvReac Type Severity Reaction Status Date / Time No Known Allergies Allergy Verified 01/20/17 14:38 - Medications Medications: Current Medications Enoxaparin Sodium (Lovenox) 40 mg SC DAILY MICHELLE PRN Reason: Protocol Dextrose/Sodium Chloride (Dextrose 5%/0.45% Ns 1000 Ml) 1,000 mls @ 100 mls/hr IV .Q10H MICHELLE Ciprofloxacin (Cipro 400mg/200ml Dsw) 400 mg in 200 mls @ 200 mls/hr IVPB Q12 MICHELLE PRN Reason: Protocol Metronidazole (Flagyl 500mg/100ml Ns) 100 mls @ 100 mls/hr IVPB Q8 MICHELLE PRN Reason: Protocol Ondansetron HCl (Zofran Inj) 4 mg IVP Q6 PRN PRN Reason: Nausea/Vomiting Physical Exam - Constitutional Appears: Non-toxic, No Acute Distress - Head Exam Head Exam: ATRAUMATIC, NORMOCEPHALIC - Eye Exam Eye Exam: EOMI, PERRL. absent: Scleral icterus Pupil Exam: PERRL. absent: Miosis, Mydriatic - ENT Exam ENT Exam: Mucous Membranes Moist, Normal Oropharynx - Neck Exam Neck exam: Positive for: Full Rom, Normal Inspection - Respiratory Exam Respiratory Exam: Clear to Auscultation Bilateral. absent: Rales, Rhonchi, Wheezes - Cardiovascular Exam Cardiovascular Exam: RRR, +S1, +S2. absent: Gallop, Rubs - GI/Abdominal Exam GI & Abdominal Exam: Normal Bowel Sounds, Soft. absent: Distended, Firm, Guarding, Mass, Organomegaly, Rigid, Tenderness - Extremities Exam Extremities exam: Positive for: normal inspection. Negative for: pedal edema - Neurological Exam Neurological exam: Alert, Oriented x3 - Psychiatric Exam Psychiatric exam: Normal Affect, Normal Mood - Skin Skin Exam: Dry, Intact, Normal Color, Warm Results - Vital Signs Recent Vital Signs: Last Vital Signs Temp 98.5 F 02/05/18 12:52 Pulse 85 02/05/18 12:52 Resp 16 02/05/18 12:52 BP 139/89 02/05/18 12:52 Pulse Ox 99 02/05/18 14:10 - Labs Result Diagrams: 02/05/18 13:20 02/05/18 13:20 Labs: Laboratory Results - last 24 hr 02/05/18 02/05/1818 13:20 13:20 13:20 WBC 5.5 RBC 4.29 Hgb 13.0 D Hct 37.8 MCV 88.2 MCH 30.3 MCHC 34.4 RDW 13.7 Plt Count 184 MPV 9.2 Neut % (Auto) 54.7 Lymph % (Auto) 33.0 [place] % (Auto) 8.0 Eos % (Auto) 3.8 Baso % (Auto) 0.5 Neut # (Auto) 3.0 Lymph # (Auto) 1.8 [place] # (Auto) 0.4 Eos # (Auto) 0.2 Baso # (Auto) 0.0 PT 11.2 INR 1.0 APTT 25.7 pO2 VBG pH VBG pCO2 VBG HCO3 VBG Total CO2 VBG O2 Sat (Calc) VBG Base Excess VBG Potassium Glucose Lactate FiO2 Sodium 139 Potassium 3.6 Chloride 105 Carbon Dioxide 27 Anion Gap 11 BUN 13 Creatinine 0.5 L Est GFR ( Amer) > 60 Est GFR (Non-Af Amer) > 60 Random Glucose 93 Calcium 9.3 Total Bilirubin 1.2 AST 29 ALT 20 Alkaline Phosphatase 115 Total Protein 8.1 Albumin 4.1 Globulin 4.1 H Albumin/Globulin Ratio 1.0 Venous Blood Potassium 02/05/18 13:30 WBC RBC Hgb Hct MCV MCH MCHC RDW Plt Count MPV Neut % (Auto) Lymph % (Auto) [place] % (Auto) Eos % (Auto) Baso % (Auto) Neut # (Auto) Lymph # (Auto) [place] # (Auto) Eos # (Auto) Baso # (Auto) PT INR APTT pO2 25 L VBG pH 7.33 VBG pCO2 51 VBG HCO3 23.5 VBG Total CO2 28.5 H VBG O2 Sat (Calc) 54.3 VBG Base Excess 0.2 VBG Potassium 3.4 L Glucose 94 Lactate 0.9 FiO2 21.0 Sodium 138.0 Potassium Chloride 106.0 Carbon Dioxide Anion Gap BUN Creatinine Est GFR ( Amer) Est GFR (Non-Af Amer) Random Glucose Calcium Total Bilirubin AST ALT Alkaline Phosphatase Total Protein Albumin Globulin Albumin/Globulin Ratio Venous Blood Potassium 3.4 L Assessment & Plan - Assessment and Plan (Free Text) Assessment: 67 year old female with PMH of Cervical cancer s/p chemoradiation six years ago , SBO 2/2 ventral hernia incarceration s/p hernia repair 12/2016, hysterectomy, appendectomy, and cholecystectomy presenting from [facility] for abdominal pain. Recent hospitalization to [facility] October 2017 for abdominal pain/bloody diarrhea 2/2 recto-sigmoid colitis s/p cipro/flagyl course with CT A/P unable to rule out underlying lesion. EGD/Colonoscopy four years ago at [facility] endorsed to show gastritis and no polyps per daughter. Plan: -obtain CT A/P to evaluate for acute pathology -start cipro/flagyl given diarrhea, -re-assess antibiotic stewardship based on CT findings -obtain stool workup to rule out infectious diarrhea-Cdiff, stool culture, O&P -obtain U/A, urine/blood cultures to rule out other infectious sources -supportive care: IVFs, anti-emetics, pain control -clear liquid diet -will benefit from EGD/colonoscopy, scheduling to be determined after infectious workup and CT findings <Rony Haskins - Last Filed: 02/05/18 22:44> Meds - Medications Medications: Current Medications Enoxaparin Sodium (Lovenox) 40 mg SC DAILY MICHELLE PRN Reason: Protocol Dextrose/Sodium Chloride (Dextrose 5%/0.45% Ns 1000 Ml) 1,000 mls @ 100 mls/hr IV .Q10H MICHELLE Last Admin: 02/05/18 15:56 Dose: 100 mls/hr Ciprofloxacin (Cipro 400mg/200ml Dsw) 400 mg in 200 mls @ 200 mls/hr IVPB Q12 MICHELLE PRN Reason: Protocol Metronidazole (Flagyl 500mg/100ml Ns) 100 mls @ 100 mls/hr IVPB Q8 MICHELLE PRN Reason: Protocol Ondansetron HCl (Zofran Inj) 4 mg IVP Q6 PRN PRN Reason: Nausea/Vomiting Results - Vital Signs Recent Vital Signs: Last Vital Signs Temp 98.5 F 02/05/18 17:14 Pulse 79 02/05/18 17:14 Resp 15 02/05/18 17:14 BP 132/81 02/05/18 17:14 Pulse Ox 98 02/05/18 17:14 - Labs Result Diagrams: 02/05/18 13:20 02/05/18 13:20 Labs: Laboratory Results - last 24 hr 02/05/18 02/05/18 02/05/18 13:20 13:20 13:20 WBC 5.5 RBC 4.29 Hgb 13.0 D Hct 37.8 MCV 88.2 MCH 30.3 MCHC 34.4 RDW 13.7 Plt Count 184 MPV 9.2 Neut % (Auto) 54.7 Lymph % (Auto) 33.0 [place] % (Auto) 8.0 Eos % (Auto) 3.8 Baso % (Auto) 0.5 Neut # (Auto) 3.0 Lymph # (Auto) 1.8 [place] # (Auto) 0.4 Eos # (Auto) 0.2 Baso # (Auto) 0.0 PT 11.2 INR 1.0 APTT 25.7 pO2 VBG pH VBG pCO2 VBG HCO3 VBG Total CO2 VBG O2 Sat (Calc) VBG Base Excess VBG Potassium Glucose Lactate FiO2 Sodium 139 Potassium 3.6 Chloride 105 Carbon Dioxide 27 Anion Gap 11 BUN 13 Creatinine 0.5 L Est GFR ( Amer) > 60 Est GFR (Non-Af Amer) > 60 Random Glucose 93 Calcium 9.3 Total Bilirubin 1.2 AST 29 ALT 20 Alkaline Phosphatase 115 Total Protein 8.1 Albumin 4.1 Globulin 4.1 H Albumin/Globulin Ratio 1.0 Venous Blood Potassium 02/05/18 13:30 WBC RBC Hgb Hct MCV MCH MCHC RDW Plt Count MPV Neut % (Auto) Lymph % (Auto) [place] % (Auto) Eos % (Auto) Baso % (Auto) Neut # (Auto) Lymph # (Auto) [place] # (Auto) Eos # (Auto) Baso # (Auto) PT INR APTT pO2 25 L VBG pH 7.33 VBG pCO2 51 VBG HCO3 23.5 VBG Total CO2 28.5 H VBG O2 Sat (Calc) 54.3 VBG Base Excess 0.2 VBG Potassium 3.4 L Glucose 94 Lactate 0.9 FiO2 21.0 Sodium 138.0 Potassium Chloride 106.0 Carbon Dioxide Anion Gap BUN Creatinine Est GFR ( Amer) Est GFR (Non-Af Amer) Random Glucose Calcium Total Bilirubin AST ALT Alkaline Phosphatase Total Protein Albumin Globulin Albumin/Globulin Ratio Venous Blood Potassium 3.4 L Attending/Attestation - Attestation I have personally seen and examined this patient.: Yes I have fully participated in the care of the patient.: Yes I have reviewed all pertinent clinical information: Yes Notes (Text): 02/05/18 22:43 This is a 67 year old female with PMH of Cervical cancer s/p chemoradiation six years ago, SBO 2/2 ventral hernia incarceration s/p hernia repair 12/2016, hysterectomy, appendectomy, and cholecystectomy presenting from [facility] for abdominal pain. Recent hospitalization to [facility] October 2017 for abdominal pain /bloody diarrhea 2/2 recto-sigmoid colitis s/p cipro/flagyl course with CT A/P unable to rule out underlying lesion. Sent from [facility] for further evaluation for unremitting abdominal pain. Will get contrast imaging and start antibiotics. Will plan on EGD/ colonoscopy next week once imaging has been reviewed
--- NOTE | 2018-02-05 15:48 | CP.PCM.HP ---
History of Present Illness - History of Present Illness History of Present Illness: CC: abdominal pain HPI: 76 YO Female with PMH of colitis, and cervical CA s/p chemo/radiation and hysterectomy (6yrs ago), SBO 2/2 ventral incarcerated hernia (s/p repair 2017) presents to [facility] ED for abdominal pain. Pt states that the pain has worsened in the past few days, she went to GI clinic today and was told to come to the ED for persistent pain. Past Patient History - Infectious Disease Hx of Infectious Diseases: None - Past Medical History & Family History Past Medical History?: Yes - Past Social History Alcohol: None Drugs: Denies - CARDIAC Hx Cardiac Disorders: No - PULMONARY Hx Respiratory Disorders: Yes - NEUROLOGICAL Hx Neurological Disorder: No - HEENT Hx HEENT Problems: No - RENAL Hx Chronic Kidney Disease: No - ENDOCRINE/METABOLIC Hx Endocrine Disorders: No - HEMATOLOGICAL/ONCOLOGICAL Hx Blood Disorders: Yes (Cervical cancer) - INTEGUMENTARY Hx Dermatological Problems: No - MUSCULOSKELETAL/RHEUMATOLOGICAL Hx Musculoskeletal Disorders: Yes Hx Falls: No - GASTROINTESTINAL Hx Gastrointestinal Disorders: No - GENITOURINARY/GYNECOLOGICAL Hx Genitourinary Disorders: Yes - PSYCHIATRIC Hx Psychophysiologic Disorder: No Hx Substance Use: No - SURGICAL HISTORY Hx Appendectomy: Yes Hx Cholecystectomy: Yes Hx Coronary Artery Bypass Graft: No - ANESTHESIA Hx Anesthesia: Yes Hx Anesthesia Reactions: No Meds Allergies/Adverse Reactions: Allergies Allergy/AdvReac Type Severity Reaction Status Date / Time No Known Allergies Allergy Verified 01/20/17 14:38 Results - Vital Signs Recent Vital Signs: Last Vital Signs Temp 98.5 F 02/05/18 12:52 Pulse 85 02/05/18 12:52 Resp 16 02/05/18 12:52 BP 139/89 02/05/18 12:52 Pulse Ox 99 02/05/18 14:10 - Labs Result Diagrams: 02/05/18 13:20 02/05/18 13:20 Labs: Laboratory Results - last 24 hr 02/05/18 02/05/18 02/05/18 13:20 13:20 13:20 WBC 5.5 RBC 4.29 Hgb 13.0 D Hct 37.8 MCV 88.2 MCH 30.3 MCHC 34.4 RDW 13.7 Plt Count 184 MPV 9.2 Neut % (Auto) 54.7 Lymph % (Auto) 33.0 [place] % (Auto) 8.0 Eos % (Auto) 3.8 Baso % (Auto) 0.5 Neut # (Auto) 3.0 Lymph # (Auto) 1.8 [place] # (Auto) 0.4 Eos # (Auto) 0.2 Baso # (Auto) 0.0 PT 11.2 INR 1.0 APTT 25.7 pO2 VBG pH VBG pCO2 VBG HCO3 VBG Total CO2 VBG O2 Sat (Calc) VBG Base Excess VBG Potassium Glucose Lactate FiO2 Sodium 139 Potassium 3.6 Chloride 105 Carbon Dioxide 27 Anion Gap 11 BUN 13 Creatinine 0.5 L Est GFR ( Amer) > 60 Est GFR (Non-Af Amer) > 60 Random Glucose 93 Calcium 9.3 Total Bilirubin 1.2 AST 29 ALT 20 Alkaline Phosphatase 115 Total Protein 8.1 Albumin 4.1 Globulin 4.1 H Albumin/Globulin Ratio 1.0 Venous Blood Potassium 02/05/18 13:30 WBC RBC Hgb Hct MCV MCH MCHC RDW Plt Count MPV Neut % (Auto) Lymph % (Auto) [place] % (Auto) Eos % (Auto) Baso % (Auto) Neut # (Auto) Lymph # (Auto) [place] # (Auto) Eos # (Auto) Baso # (Auto) PT INR APTT pO2 25 L VBG pH 7.33 VBG pCO2 51 VBG HCO3 23.5 VBG Total CO2 28.5 H VBG O2 Sat (Calc) 54.3 VBG Base Excess 0.2 VBG Potassium 3.4 L Glucose 94 Lactate 0.9 FiO2 21.0 Sodium 138.0 Potassium Chloride 106.0 Carbon Dioxide Anion Gap BUN Creatinine Est GFR ( Amer) Est GFR (Non-Af Amer) Random Glucose Calcium Total Bilirubin AST ALT Alkaline Phosphatase Total Protein Albumin Globulin Albumin/Globulin Ratio Venous Blood Potassium 3.4 L
[2018-02-05] MEDS ORDERED: metroNIDAZOLE 500mg/100ml NS 100 ML IVPB SCH (17:00)
[2018-02-05 17:16] VITALS: BP 132/81; PULSE 79; RESP 15; O2SAT 98
--- NOTE | 2018-02-05 17:59 | CP.PCM.PCO ---
<Marcia Mercer - Last Filed: 02/05/18 17:59> Against Medical Advice - AMA Patient Left Against Medical Advice: The patient declines admission to the hospital and wishes to leave the Emergency Department. This action is against my medical advice. This decision was made with informed refusal. The patient was told that admission to the hospital is necessary. Explanation of the reasons why were discussed. The risks of leaving were explained to the patient and include, but are not limited to, worsening of known or currently unknown conditions, permanent disability and from undiagnosed or untreated conditions. The patient has the capacity to make this informed decision and understands my explanation of the current medical problem and risks of leaving. The patient voluntarily accepts these risks and signed an AMA form documenting our conversation. The patient was given the opportunity to ask questions and reconsider. The patient was encouraged to return to the Emergency Department at any time for further care. Chief Complaint: See signed AMA form for further details. Scanned into pts chart. <Heidy Rodriguez - Last Filed: 02/06/18 09:04> Against Medical Advice - AMA Patient Left Against Medical Advice: The patient declines admission to the hospital and wishes to leave the Emergency Department. This action is against my medical advice. This decision was made with informed refusal. The patient was told that admission to the hospital is necessary. Explanation of the reasons why were discussed. The risks of leaving were explained to the patient and include, but are not limited to, worsening of known or currently unknown conditions, permanent disability and from undiagnosed or untreated conditions. The patient has the capacity to make this informed decision and understands my explanation of the current medical problem and risks of leaving. The patient voluntarily accepts these risks and signed an AMA form documenting our conversation. The patient was given the opportunity to ask questions and reconsider. The patient was encouraged to return to the Emergency Department at any time for further care. Attending/Attestation - Attestation Notes (Text): 02/06/18 09:03 Attestation - Attending note - Patient decided to sign out against medical advice as documented by the resident. Patient was told to return if she changed her mind and/or if worsening or symptoms.
[2018-02-05] MEDS ORDERED: Ciprofloxacin 400mg/200ml D5W 400 MG/200 ML BAG IVPB SCH (21:00)
[2018-02-06] MEDS ORDERED: Enoxaparin 40 mg Syringe SC SCH (09:00)
== END 2018-02-05 17:16 | disposition left against medical advice (07) | DRG 392 ==
LOC: H.ER 11:49 → H.ERHOLD 14:07
PROVIDERS: ADMIT Family Medicine Geriatric Medicine; ATTEND Family Medicine Geriatric Medicine
DX: K52.9 Noninfective gastroenteritis and colitis, unspecified (principal); K29.70 Gastritis, unspecified, without bleeding; Z85.41 Personal history of malignant neoplasm of cervix uteri; Z90.710 Acquired absence of both cervix and uterus; Z90.49 Acquired absence of other specified parts of digestive tract; Z92.21 Personal history of antineoplastic chemotherapy; Z92.3 Personal history of irradiation